=== PATIENT | male | born 1965 | race Caucasian/White ===

== ENCOUNTER → 2019-07-22 16:12 | Outpatient (CLI) | payer BC, SELFPAY ==
--- NOTE | 2019-07-22 16:20 | XR_ITS ---
PROCEDURE: XR KNEE LT 3V CLINICAL INDICATION: LT KNEE PAIN COMPARISON: KNEE3R KNEE-3 VIEWS-RT from 02/12/2016 FINDINGS: Bone density, joint spaces and alignment are normal. There is no acute fracture. There is a small posterior superior spur from the patella and small spur at the quadriceps tendon attachment to the patella. There is slight increased density in the suprapatellar bursa. IMPRESSION: No acute process. Some mild patellar spur Possible subtle small joint effusion. Dictated by: Jet Torre 07/22/2019 16:35 Electronically signed by Jet Torre in [place] 07/22/2019 16:35
== END ==
PROVIDERS: PCP Family Medicine; Visit Provider Family Medicine
DX: M25.562 Pain in left knee (principal); M25.462 Effusion, left knee
CPT/HCPCS: 73562

== ENCOUNTER → 2019-08-20 12:42 | Outpatient (CLI) | payer BC, SELFPAY ==
--- NOTE | 2019-08-20 12:46 | XR_ITS ---
PROCEDURE: XR KNEE LT 4V CLINICAL INDICATION: knee pain COMPARISON: KNEE3R KNEE-3 VIEWS-RT from 02/12/2016 XR KNEE LT 3V from 07/22/2019 FINDINGS: No fracture or dislocation. No lytic or blastic change. There is normal mineralization. There is mild medial compartment osteoarthritis. Enthesopathy of the superior aspect of the patella is noted. A small to moderate sized suprapatellar joint effusion is noted. Other findings:None. IMPRESSION: Osteoarthritis with joint effusion. Dictated by: Drake Solis 08/20/2019 15:54 Electronically signed by Drake Solis in [facility] 08/20/2019 15:54
== END ==
LOC: RAD 12:44
PROVIDERS: PCP Family Medicine; Visit Provider Orthopaedic Surgery
DX: M25.562 Pain in left knee (principal)
CPT/HCPCS: 73564

== ENCOUNTER → 2019-08-27 15:41 | Outpatient (CLI) | payer BC, SELFPAY ==
--- NOTE | 2019-08-27 15:41 | MR_ITS ---
PROCEDURE: MR KNEE LT WO CON CLINICAL INDICATION: left knee pain Left knee pain medially COMPARISON: XR KNEE LT 4V from 08/20/2019 TECHNIQUE: Routine multiplanar multi echo sequences are performed without gadolinium enhancement. FINDINGS: Cruciate ligaments are intact. The collateral ligaments, patellar tendon, and quadriceps tendon appears intact. Nonspecific increased T2 signal is present in the posterior horn of the medial meniscus and in the anterior horn of the lateral meniscus. No evidence of meniscal tear. There is some thinning of the posterior patellar cartilage superiorly and medially. There is a medium-sized knee joint effusion and there is a small amount of subcu soft tissue edema about the knee. IMPRESSION: 1. No evidence of internal derangement. 2. Medium-sized knee joint effusion. 3. 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
--- NOTE | 2019-08-27 15:51 | XR_ITS ---
PROCEDURE: XR ORBIT BILATERAL MIN 4V CLINICAL INDICATION: RULE OUT METAL FOREIGN BODY FOR MRI COMPARISON: No exams were available for comparison TECHNIQUE: AP views are obtained of the orbits with the patient looking up and down. FINDINGS: No radio opaque foreign bodies evident. IMPRESSION: No radio opaque orbital foreign body identified. Dictated by: Darron Bashir MD 08/27/2019 16:12 Electronically signed by Darron Bashir MD in [place] 08/27/2019 16:12
== END ==
PROVIDERS: PCP Family Medicine; Visit Provider Orthopaedic Surgery
DX: M25.562 Pain in left knee (principal); H05.53 Retained (old) foreign body following penetrating wound of bilateral orbits
CPT/HCPCS: 70200; 73721

== ENCOUNTER → 2020-08-16 19:17 | Outpatient (CLI) | payer BC, SELFPAY ==
[2020-08-16 19:50] LABS: Basophils # 0.1 K/mm3 (0-0.2); Eosinophils # 0.2 K/mm3 (0.0-0.4); Monocytes # 0.6 K/mm3 (0.1-1.0); Red Cell Distribution Width 14.6 % (11.5-17.5)
[2020-08-16 19:55] LABS: Basophils % 1.3 % (0.1-2.0); Eosinophils % 2.1 % (0.1-12.0); Hematocrit 51.7 % (42.0-52.0); Lymphocytes # 1.8 K/mm3 (0.7-4.5); Lymphocytes % 23.7 % (10-50); Mean Corpuscular HGB Conc 34.7 g/dL (31.8-35.4); Mean Corpuscular Hemoglobin 30.1 pg (27.0-31.2); Mean Corpuscular Volume 86.7 fl (80-94); Mean Platelet Volume 8.6 fl (7.4-10.4); Monocytes % 8.2 % (1.7-9.3); Neutrophils # 4.9 K/mm3 (1.8-7.8); Neutrophils % 64.6 % (37.0-80.0); Platelet Count 221 K/mm3 (142-424); Red Blood Count 5.96 M/mm3 (4.60-6.20); White Blood Count 7.5 K/mm3 (4.8-10.8)
[2020-08-16 20:01] LABS: Hemoglobin 17.9 g/dL (14.1-18.0)
[2020-08-16 20:05] LABS: Alanine Aminotransferase 57 U/L (12-78); Albumin Level 4.5 g/dl (3.5-5.0); Albumin/Globulin Ratio 1.5 (1.1-1.8); Alkaline Phosphatase 116 U/L (38-126); Anion Gap 15.5 mEq/L (5-15); Aspartate Amino Transferase 40 U/L (17-59); Bilirubin,Total 0.7 mg/dl (0.2-1.3); Blood Urea Nitrogen 21 mg/dl (9-20); Calcium 9.9 mg/dl (8.4-10.2); Carbon Dioxide 24 mmol/L (22.0-30.0); Chloride 97 mmol/L (98-107); Chol/HDL Ratio 7.4 (1-3.5); Cholesterol 208 mg/dl (140-200); Estimated Glomerular Filt Rate 88 ml/min (>60); GFR (African American) 106 ML/MIN (>60); Globulin 3.1 g/dL (1.3-3.2); Glucose 242 mg/dl (74-100); HDL Cholesterol 28 mg/dl (40-60); Potassium 4.5 mmoL/L (3.5-5.1); Sodium 132 mmol/L (136-145); Total Protein,Serum 7.6 g/dl (6.3-8.2)
[2020-08-16 20:13] LABS: Triglycerides 574 mg/dl (30-150)
[2020-08-16 20:16] LABS: Direct LDL Cholesterol 80.27 mg/dL (100-129)
[2020-08-16 20:20] LABS: 25-OH Vitamin D, Total 15.8 ng/mL (30-100)
[2020-08-16 20:35] LABS: Thyroid Stimulating Hormone 2.46 uIU/mL (0.465-4.68)
[2020-08-18 11:34] LABS: PSA, Free 0.21 ng/mL; Prostate Specific Ag 0.5 ng/mL (0.0-4.0)
[2020-08-18 17:47] LABS: C-Peptide 6.1 ng/mL (1.1-4.4)
== END ==
PROVIDERS: Visit Provider Nurse Practitioner Family
DX: E11.9 Type 2 diabetes mellitus without complications (principal); E78.5 Hyperlipidemia, unspecified; I10 Essential (primary) hypertension; E55.9 Vitamin D deficiency, unspecified; Z12.5 Encounter for screening for malignant neoplasm of prostate; Z72.0 Tobacco use
CPT/HCPCS: 80053; 80061; 82306; 83036; 84153; 84154; 84436; 84443; 84681; 85025

== ENCOUNTER → 2020-11-21 13:36 | Outpatient (CLI) | payer BC, SELFPAY ==
[2020-11-21 13:49] LABS: Chloride 100 mmol/L (98-107); Potassium 4.5 mmoL/L (3.5-5.1); Sodium 136 mmol/L (136-145)
[2020-11-21 13:51] LABS: Alanine Aminotransferase 40 U/L (12-78); Aspartate Amino Transferase 35 U/L (17-59); Blood Urea Nitrogen 20 mg/dl (9-20); Estimated Glomerular Filt Rate 69 ml/min (>60); GFR (African American) 84 ML/MIN (>60)
[2020-11-21 13:52] LABS: Albumin Level 4.5 g/dl (3.5-5.0); Albumin/Globulin Ratio 1.6 (1.1-1.8); Alkaline Phosphatase 87 U/L (38-126); Anion Gap 14.5 mEq/L (5-15); Bilirubin,Total 0.7 mg/dl (0.2-1.3); Carbon Dioxide 26 mmol/L (22.0-30.0); Chol/HDL Ratio 5.8 (1-3.5); Cholesterol 167 mg/dl (140-200); Globulin 2.8 g/dL (1.3-3.2); Glucose 128 mg/dl (74-100); HDL Cholesterol 29 mg/dl (40-60); Total Protein,Serum 7.3 g/dl (6.3-8.2); Triglycerides 213 mg/dl (30-150); VLDL Cholesterol 43 mg/dL (0-40)
[2020-11-21 13:55] LABS: Creatinine,Urine Random 58 mg/dL (Not Estab.)
[2020-11-21 14:02] LABS: Microalbumin < 6.000 mg/L (0-16.7)
[2020-11-21 14:03] LABS: Direct LDL Cholesterol 102.27 mg/dL (100-129)
[2020-11-21 14:11] LABS: T4 (Thyroxine) 6.6 ug/dl (5.53-11.0)
[2020-11-21 14:23] LABS: Thyroid Stimulating Hormone 1.91 uIU/mL (0.465-4.68)
[2020-11-21 14:29] LABS: Basophils # 0.1 K/mm3 (0-0.2); Basophils % 0.7 % (0.1-2.0); Eosinophils # 0.2 K/mm3 (0.0-0.4); Eosinophils % 1.9 % (0.1-12.0); Hematocrit 46.8 % (42.0-52.0); Lymphocytes # 1.5 K/mm3 (0.7-4.5); Lymphocytes % 17.6 % (10-50); Mean Corpuscular HGB Conc 34.1 g/dL (31.8-35.4); Mean Corpuscular Hemoglobin 29.8 pg (27.0-31.2); Mean Corpuscular Volume 87.5 fl (80-94); Mean Platelet Volume 8.3 fl (7.4-10.4); Monocytes # 0.5 K/mm3 (0.1-1.0); Monocytes % 6.6 % (1.7-9.3); Neutrophils # 6.1 K/mm3 (1.8-7.8); Neutrophils % 73.3 % (37.0-80.0); Platelet Count 205 K/mm3 (142-424); Red Blood Count 5.35 M/mm3 (4.60-6.20); Red Cell Distribution Width 14.2 % (11.5-17.5); White Blood Count 8.3 K/mm3 (4.8-10.8)
[2020-11-21 15:04] LABS: Hemoglobin A1C 6.7 % (4.0-6.0)
== END ==
PROVIDERS: Visit Provider Nurse Practitioner Family
DX: E11.9 Type 2 diabetes mellitus without complications (principal); E78.5 Hyperlipidemia, unspecified; I10 Essential (primary) hypertension; Z79.84 Long term (current) use of oral hypoglycemic drugs; Z79.899 Other long term (current) drug therapy
CPT/HCPCS: 80053; 80061; 82043; 82570; 83036; 84436; 84443; 85025

== ENCOUNTER → 2021-05-02 17:45 | Outpatient (CLI) | payer BC, SELFPAY ==
[2021-05-02 19:06] LABS: Alanine Aminotransferase 34 U/L (12-78); Albumin Level 4.3 g/dl (3.5-5.0); Albumin/Globulin Ratio 1.5 (1.1-1.8); Alkaline Phosphatase 80 U/L (38-126); Anion Gap 12.6 mEq/L (5-15); Aspartate Amino Transferase 30 U/L (17-59); Basophils # 0.1 K/mm3 (0-0.2); Bilirubin,Total 0.6 mg/dl (0.2-1.3); Blood Urea Nitrogen 18 mg/dl (9-20); Calcium 9.5 mg/dl (8.4-10.2); Carbon Dioxide 26 mmol/L (22.0-30.0); Chloride 102 mmol/L (98-107); Chol/HDL Ratio 5.5 (1-3.5); Cholesterol 160 mg/dl (140-200); Eosinophils # 0.2 K/mm3 (0.0-0.4); Eosinophils % 2.9 % (0.1-12.0); Estimated Glomerular Filt Rate 88 ml/min (>60); GFR (African American) 106 ML/MIN (>60); Globulin 2.8 g/dL (1.3-3.2); Glucose 96 mg/dl (74-100); HDL Cholesterol 29 mg/dl (40-60); Hematocrit 48.5 % (42.0-52.0); Hemoglobin 16.6 g/dL (14.1-18.0); Lymphocytes # 1.7 K/mm3 (0.7-4.5); Lymphocytes % 22.5 % (10-50); Mean Corpuscular HGB Conc 34.1 g/dL (31.8-35.4); Mean Corpuscular Hemoglobin 30.2 pg (27.0-31.2); Mean Corpuscular Volume 88.6 fl (80-94); Mean Platelet Volume 8.7 fl (7.4-10.4); Monocytes # 0.6 K/mm3 (0.1-1.0); Monocytes % 7.3 % (1.7-9.3); Neutrophils # 5.1 K/mm3 (1.8-7.8); Neutrophils % 66.3 % (37.0-80.0); Platelet Count 210 K/mm3 (142-424); Potassium 4.6 mmoL/L (3.5-5.1); Red Blood Count 5.47 M/mm3 (4.60-6.20); Red Cell Distribution Width 14.9 % (11.5-17.5); Sodium 136 mmol/L (136-145); Total Protein,Serum 7.1 g/dl (6.3-8.2); Triglycerides 147 mg/dl (30-150); VLDL Cholesterol 29 mg/dL (0-40); White Blood Count 7.6 K/mm3 (4.8-10.8)
[2021-05-02 19:18] LABS: Direct LDL Cholesterol 95.18 mg/dL (100-129)
[2021-05-02 19:24] LABS: Free T4 (Free Thyroxine) 1.03 ng/dl (0.78-2.19)
[2021-05-02 19:40] LABS: Thyroid Stimulating Hormone 1.91 uIU/mL (0.465-4.68)
[2021-05-02 19:45] LABS: Creatinine,Urine Random 41 mg/dL (Not Estab.); Microalbumin < 6.000 mg/L (0-16.7)
[2021-05-02 20:28] LABS: Hemoglobin A1C 5.7 % (4.0-6.0)
== END ==
PROVIDERS: Visit Provider Nurse Practitioner Family
DX: E11.9 Type 2 diabetes mellitus without complications (principal); Z79.84 Long term (current) use of oral hypoglycemic drugs; Z79.899 Other long term (current) drug therapy
CPT/HCPCS: 80053; 80061; 82043; 82570; 83036; 84439; 84443; 85025

== ENCOUNTER → 2021-11-05 14:18 | Outpatient (CLI) | payer BC, SELFPAY ==
[2021-11-05 18:19] LABS: Basophils # 0.1 K/mm3 (0-0.2); Basophils % 0.9 % (0.1-2.0); Eosinophils # 0.2 K/mm3 (0.0-0.4); Eosinophils % 2.4 % (0.1-12.0); Hematocrit 46.4 % (42.0-52.0); Hemoglobin 15.9 g/dL (14.1-18.0); Lymphocytes # 1.6 K/mm3 (0.7-4.5); Lymphocytes % 21.9 % (10-50); Mean Corpuscular HGB Conc 34.2 g/dL (31.8-35.4); Mean Corpuscular Hemoglobin 30.7 pg (27.0-31.2); Mean Corpuscular Volume 89.8 fl (80-94); Mean Platelet Volume 8.6 fl (7.4-10.4); Monocytes # 0.5 K/mm3 (0.1-1.0); Monocytes % 6.4 % (1.7-9.3); Neutrophils # 4.9 K/mm3 (1.8-7.8); Neutrophils % 68.4 % (37.0-80.0); Platelet Count 218 K/mm3 (142-424); Red Blood Count 5.17 M/mm3 (4.60-6.20); Red Cell Distribution Width 14.5 % (11.5-17.5); White Blood Count 7.1 K/mm3 (4.8-10.8)
[2021-11-05 18:38] LABS: Hemoglobin A1C 5.9 % (4.0-6.0)
[2021-11-05 18:50] LABS: Alanine Aminotransferase 45 U/L (12-78); Albumin Level 4.2 g/dl (3.5-5.0); Albumin/Globulin Ratio 1.7 (1.1-1.8); Alkaline Phosphatase 85 U/L (38-126); Aspartate Amino Transferase 34 U/L (17-59); Bilirubin,Total 0.6 mg/dl (0.2-1.3); Blood Urea Nitrogen 26 mg/dl (9-20); Calcium 9.3 mg/dl (8.4-10.2); Carbon Dioxide 23 mmol/L (22.0-30.0); Chloride 102 mmol/L (98-107); Chol/HDL Ratio 7.5 (1-3.5); Cholesterol 164 mg/dl (140-200); Estimated Glomerular Filt Rate 87 ml/min (>60); GFR (African American) 106 ML/MIN (>60); Globulin 2.5 g/dL (1.3-3.2); Glucose 177 mg/dl (74-100); HDL Cholesterol 22 mg/dl (40-60); Sodium 135 mmol/L (136-145); Total Protein,Serum 6.7 g/dl (6.3-8.2); Triglycerides 353 mg/dl (30-150); VLDL Cholesterol 71 mg/dL (0-40)
[2021-11-05 19:02] LABS: Direct LDL Cholesterol 87.92 mg/dL (100-129)
[2021-11-05 19:08] LABS: 25-OH Vitamin D, Total 67.1 ng/mL (30-100); T4 (Thyroxine) 6.1 ug/dl (5.53-11.0)
[2021-11-05 19:21] LABS: Thyroid Stimulating Hormone 1.72 uIU/mL (0.465-4.68)
[2021-11-07 11:26] LABS: C-Peptide 10.5 ng/mL (1.1-4.4)
== END ==
PROVIDERS: PCP Nurse Practitioner Family; Visit Provider Nurse Practitioner Family
DX: E11.9 Type 2 diabetes mellitus without complications (principal); I10 Essential (primary) hypertension; E78.5 Hyperlipidemia, unspecified; E66.9 Obesity, unspecified; Z68.34 Body mass index [BMI] 34.0-34.9, adult; Z79.84 Long term (current) use of oral hypoglycemic drugs
CPT/HCPCS: 80053; 80061; 82306; 83036; 84436; 84443; 84681; 85025

== ENCOUNTER → 2021-12-25 12:31 | Outpatient (CLI) | payer BC, SELFPAY ==
--- NOTE | 2021-12-25 12:35 | XR_ITS ---
FINAL REPORT CLINICAL HISTORY: L Knee pain FINDINGS: Four views of the left knee were obtained. The images are incorrectly labeled as a right knee. There is no acute fracture or dislocation. The joint spaces demonstrate mild degenerative change. There is a small joint effusion. IMPRESSION: Small joint effusion with mild degenerative change. Reviewed, Interpreted and Dictated by Raimundo Shaw III, MD Transcribed by Jose Antonio Hernandez Authenticated by Raimundo Shaw III, MD on 12/25/2021 01:37:05 PM [facility]
== END ==
LOC: RAD 12:32
PROVIDERS: PCP Nurse Practitioner Family; Visit Provider Nurse Practitioner Family
DX: M25.562 Pain in left knee (principal)
CPT/HCPCS: 73564

== ENCOUNTER → 2022-08-14 14:15 | Outpatient (CLI) | payer BC, SELFPAY ==
[2022-08-14 19:26] LABS: Basophils # 0.1 K/mm3 (0-0.2); Eosinophils # 0.2 K/mm3 (0.0-0.4); Eosinophils % 2.2 % (0.1-12.0); Hematocrit 48.8 % (42.0-52.0); Hemoglobin 17.2 g/dL (14.1-18.0); Lymphocytes # 1.7 K/mm3 (0.7-4.5); Lymphocytes % 22.1 % (10-50); Mean Corpuscular HGB Conc 35.2 g/dL (31.8-35.4); Mean Corpuscular Hemoglobin 30.7 pg (27.0-31.2); Mean Corpuscular Volume 87.2 fl (80-94); Mean Platelet Volume 9.2 fl (7.4-10.4); Monocytes # 0.7 K/mm3 (0.1-1.0); Monocytes % 8.6 % (1.7-9.3); Neutrophils # 5.1 K/mm3 (1.8-7.8); Platelet Count 270 K/mm3 (142-424); Red Cell Distribution Width 14.7 % (11.5-17.5); White Blood Count 7.7 K/mm3 (4.8-10.8)
[2022-08-14 19:28] LABS: Alanine Aminotransferase 72 U/L (12-78); Albumin Level 4.8 g/dl (3.5-5.0); Albumin/Globulin Ratio 1.8 (1.1-1.8); Alkaline Phosphatase 97 U/L (38-126); Anion Gap 14.6 mEq/L (5-15); Aspartate Amino Transferase 49 U/L (17-59); Bilirubin,Total 0.6 mg/dl (0.2-1.3); Blood Urea Nitrogen 21 mg/dl (9-20); Calcium 9.5 mg/dl (8.4-10.2); Carbon Dioxide 24 mmol/L (22.0-30.0); Chloride 100 mmol/L (98-107); Chol/HDL Ratio 8.8 (1-3.5); Cholesterol 194 mg/dl (140-200); Estimated Glomerular Filt Rate 87 ml/min (>60); GFR (African American) 106 ML/MIN (>60); Globulin 2.6 g/dL (1.3-3.2); Glucose 131 mg/dl (74-100); HDL Cholesterol 22 mg/dl (40-60); Potassium 4.6 mmoL/L (3.5-5.1); Sodium 134 mmol/L (136-145); Total Protein,Serum 7.4 g/dl (6.3-8.2)
[2022-08-14 19:36] LABS: Creatinine,Urine Random 81 mg/dL (Not Estab.)
[2022-08-14 19:38] LABS: Microalbumin < 6.000 mg/L (0-16.7)
[2022-08-14 19:39] LABS: Direct LDL Cholesterol 92.28 mg/dL (100-129)
[2022-08-14 19:41] LABS: Triglycerides 571 mg/dl (30-150)
[2022-08-14 19:48] LABS: 25-OH Vitamin D, Total 31.1 ng/mL (30-100)
[2022-08-14 20:01] LABS: Prostate Specific Ag Screen 0.6 ng/ml (0.0-4.0); Thyroid Stimulating Hormone 2.26 uIU/mL (0.465-4.68)
[2022-08-14 20:29] LABS: Hemoglobin A1C 6.5 % (4.0-6.0)
== END ==
PROVIDERS: PCP Physician Assistant; Visit Provider Physician Assistant
DX: E11.9 Type 2 diabetes mellitus without complications (principal); E66.3 Overweight; Z68.34 Body mass index [BMI] 34.0-34.9, adult; Z79.84 Long term (current) use of oral hypoglycemic drugs; Z79.899 Other long term (current) drug therapy
CPT/HCPCS: 80053; 80061; 82043; 82306; 82570; 83036; 84443; 85025; G0103

== ENCOUNTER 2022-10-16 06:46 | Inpatient (IN) | payer BC, SELFPAY ==
[2022-10-16] VITALS (45 sets, daily range): BP systolic 90–143; BP diastolic 43–93; PULSE 44–61; RESP 12–20; TEMP 36.1–37.2; O2SAT 93–100; BMI 34.9; BMI 36.3
--- NOTE | 2022-10-16 06:42 | ECG_ITS ---
APPROVED REPORT Exam: Resting ECG HR:63 bpm ECG Measurements Heart Rate 63 AXES AL 167 P 54 QRSd 105 QRS -38 QT 401 T 32 QTc 408 Conclusion SINUS RHYTHM WITH FREQUENT VENTRICULAR PREMATURE COMPLEXES LEFT AXIS DEVIATION [QRS AXIS < -30] ABNORMAL ECG UNCONFIRMED REPORT Electronically signed by : Surinder Tran MD 10/18/2022 16:41:57
--- NOTE | 2022-10-16 06:54 | XR_ITS ---
FINAL REPORT CLINICAL HISTORY: cp FINDINGS: TWO-VIEW CHEST The heart size is normal. The mediastinum is normal. There are mild chronic changes at the bases. The lungs are otherwise clear. There is no pneumothorax. IMPRESSION: No acute cardiopulmonary process. Reviewed, Interpreted and Dictated by Kei Giang MD Transcribed by Graciela Velasquez Authenticated and [facility]
[2022-10-16 07:04] LABS: White Blood Count 6.5 K/mm3 (4.8-10.8)
[2022-10-16 07:05] LABS: Basophils # 0.1 K/mm3 (0-0.2); Basophils % 1.4 % (0.1-2.0); Eosinophils # 0.1 K/mm3 (0.0-0.4); Eosinophils % 1.5 % (0.1-12.0); Hematocrit 51.3 % (42.0-52.0); Hemoglobin 17.5 g/dL (14.1-18.0); Lymphocytes % 15.3 % (10-50); Mean Corpuscular Volume 88.3 fl (80-94); Mean Platelet Volume 7.7 fl (7.4-10.4); Monocytes # 0.5 K/mm3 (0.1-1.0); Monocytes % 7.6 % (1.7-9.3); Neutrophils # 4.8 K/mm3 (1.8-7.8); Neutrophils % 74.2 % (37.0-80.0); Platelet Count 230 K/mm3 (142-424); Red Blood Count 5.81 M/mm3 (4.60-6.20); Red Cell Distribution Width 14.5 % (11.5-17.5)
[2022-10-16 07:09] LABS: Alanine Aminotransferase 69 U/L (12-78); Albumin Level 4.6 g/dl (3.5-5.0); Albumin/Globulin Ratio 1.5 (1.1-1.8); Alkaline Phosphatase 81 U/L (38-126); Anion Gap 12.2 mEq/L (5-15); Aspartate Amino Transferase 57 U/L (17-59); Bilirubin,Total 0.7 mg/dl (0.2-1.3); Blood Urea Nitrogen 21 mg/dl (9-20); Calcium 9.4 mg/dl (8.4-10.2); Carbon Dioxide 27 mmol/L (22.0-30.0); Chloride 100 mmol/L (98-107); Creatinine Clearance Estimated 139 mL/min (50-200); Estimated Glomerular Filt Rate 77 ml/min (>60); GFR (African American) 93 ML/MIN (>60); Glucose 192 mg/dl (74-100); Potassium 4.2 mmoL/L (3.5-5.1); Sodium 135 mmol/L (136-145); Total Protein,Serum 7.6 g/dl (6.3-8.2)
[2022-10-16 07:21] LABS: NT Pro Brain Natriuretic Pep. 271 pg/mL (0-125)
[2022-10-16 07:25] LABS: Procalcitonin 0.098 ng/mL (0.0-2.0)
--- NOTE | 2022-10-16 07:27 | HMH.EDCP ---
Discharge Plan Disposition Patient Disposition: Admitted As Inpatient Chief Complaint: Chest Pain Prescriptions Prescriptions: No Action metformin 500 mg tablet 500 mg PO BID Label Comments: TAKE ONE TABLET BY MOUTH TWICE A DAY (DME) blood-glucose meter Misc See Rx Instructions MISCELLANEOUS Rx Instructions: test BID (DME) Contour Test Strips Strip See Rx Instructions MISCELLANEOUS Rx Instructions: Test BID aspirin 81 mg tablet,delayed release (DR/EC) 81 mg PO DAILY Rx Instructions: TAKE 1 TABLET BY MOUTH ONCE DAILY lisinopril 10 mg tablet 10 mg PO DAILY Rx Instructions: TAKE ONE TABLET BY MOUTH EVERY DAY icosapent ethyl [Vascepa] 1 gram capsule 1 g PO DAILY Rx Instructions: TAKE 2 TABLETS BY MOUTH TWICE A DAY FOR CHOLESTROL (DME) lancets [Color Lancets] 21 gauge misc See Rx Instructions MISCELLANEOUS Rx Instructions: As directed Referrals Follow up/Referrals: Provider,Referral, MD [Referring] - See instructions Clinical Impressions Clinical Impression: Angina pectoris, unstable, Non-ST elevated myocardial infarction (non-STEMI), Type 2 diabetes mellitus, Obesity Discharge ED Provider: Ramy (ED)Neftaly Chest Pain HPI General Chief Complaint: Chest Pain Stated Complaint: chest pain Time Seen by Provider: 10/16/22 07:28 Mode of Arrival: Ambulatory Source of Information: Patient, Spouse and Medical Record Limitations: No Limitations Description of Symptoms (Recalled from ER Triage Doc. by RN): [facility] cp for prior 2 weeks that is intermittent. States that he woke up this am and the pain was in the center of his chest with radiation down his left arm. States that nothing makes it better. Denies n/v. History of Present Illness HPI narrative: pt with episodes of chest pain over the last 2 weeks - brief- self-limiting but this am with chest pain some pressure component and started since 0300 and has not left - no known ht dis but has diabetes MD complaint: chest pain indicative of cardiac Onset (ago): hour(s) Duration: constant Activity at onset: during rest Pain location: substernal Severity: moderate Quality: heaviness Pain radiation: LUE Risk Factors for CAD: Family Hx of CAD and Diabetes Treatments prior to or on arrival for Cardiac Chest Pain: none RASHAAD Score for Non-Stemi Age of Patient: 50-59 years old Heart Rate: 50-69 bpm Systolic Blood Pressure: 100-119 mmHg Serum Creatinine: 0.80-1.19 mg/dl CHF Killip Class: I-No CHF Other Risk Factors: Elevated Cardiac Enzymes or Biomarkers Non-Stemi Risk Score: 108 Risk Stratification: 1-108 = Low Risk Related Data Home Medications Medication Instructions Recorded Confirmed aspirin 81 mg tablet,delayed 81 mg PO DAILY heart health 10/16/22 10/16/22 release blood sugar diagnostic (Contour 10/16/22 10/16/22 Test Strips) blood-glucose meter 10/16/22 10/16/22 icosapent ethyl 1 gram capsule 1 g PO DAILY High cholesterol 10/16/22 10/16/22 (Vascepa) lancets 21 gauge (Color Lancets) 10/16/22 10/16/22 lisinopril 10 mg tablet 10 mg PO DAILY High blood pressure 10/16/22 10/16/22 metformin 500 mg tablet 500 mg PO BID Diabetes 10/16/22 10/16/22 Allergies Allergy/AdvReac Type Severity Reaction Status Date / Time Penicillins [PENICILLINS] Allergy Unknown Verified 08/14/22 14:08 [facility] Disclaimer: The information contained in this section may have been updated after the patient was seen, as this information can be updated by other users. Medical History Diabetes Hyperlipidemia Hypertension Type 2 diabetes mellitus Social History Smoking Status: Never smoker alcohol intake: former substance use type: denies use current occupational status: employed Travel in the last 8 weeks: None household members: s
--- NOTE | 2022-10-16 07:27 | PC.NURSE ---
Dr coronado speaking to Dr Orta
--- NOTE | 2022-10-16 07:28 | ECG_ITS ---
APPROVED REPORT Exam: Resting ECG HR:60 bpm ECG Measurements Heart Rate 60 AXES GA 122 P 82 QRSd 101 QRS -49 QT 403 T 11 QTc 403 Conclusion SINUS RHYTHM WITH OCCASIONAL VENTRICULAR PREMATURE COMPLEXES LEFT ANTERIOR FASCICULAR BLOCK [QRS AXIS <= -45, QR IN I, RS IN II] ABNORMAL ECG UNCONFIRMED REPORT Electronically signed by : Surinder Tran MD 10/18/2022 16:39:52
[2022-10-16 07:31] LABS: Erythrocyte Sedimentation Rate 11 mm/hr (0-20)
[2022-10-16 07:37] LABS: Troponin I 0.22 ng/ml (0.00-0.034)
--- NOTE | 2022-10-16 07:37 | PC.NURSE ---
called lab for troponin rosalbaiwsed dr Mccann it is 0.222
--- NOTE | 2022-10-16 07:38 | PC.NURSE ---
verbal order for nitro drip per MD
--- NOTE | 2022-10-16 07:39 | PC.NURSE ---
Dr Mccann talking to Dr Orta
[2022-10-16 07:41] LABS: C-Reactive Protein 0.9 mg/L (0-4)
--- NOTE | 2022-10-16 07:42 | PC.NURSE ---
Dr Mccann spoke to Dr Gutiérrez
--- NOTE | 2022-10-16 07:44 | PC.NURSE ---
called case management for admission
--- NOTE | 2022-10-16 08:02 | PC.NURSE ---
pt shaved for cath, placed in a gown and pads in place. pt is resting comfortable rating his pain 1/10. vss at this time
[2022-10-16 08:04] LABS: Cholesterol 206 mg/dl (140-200); HDL Cholesterol 23 mg/dl (40-60); Triglycerides 353 mg/dl (30-150); VLDL Cholesterol 71 mg/dL (0-40)
--- NOTE | 2022-10-16 08:06 | PC.NURSE ---
cath consent signed at this time
[2022-10-16 08:26] LABS: Direct LDL Cholesterol 120.39 mg/dL (100-129)
[2022-10-16 08:52] LABS: Hemoglobin A1C 6.3 % (4.0-6.0)
--- NOTE | 2022-10-16 09:18 | PC.NURSE ---
Sapna Rachel in with
--- NOTE | 2022-10-16 09:21 | PC.NURSE ---
pt to laboratory inspector at this time
--- NOTE | 2022-10-16 09:24 | IR_ITS ---
APPROVED REPORT Patient Location: [facility] Facilitator: GEOVANI Rodgers RT (R) PROCEDURES Left heart catheterization Left ventriculogram Selective coronary angiogram Attempted angioplasty of the nondominant circumflex artery INDICATION Non-ST elevation myocardial infarction, Coronary disease with occluded circumflex artery Informed consent was obtained prior to the procedure. COMPLICATIONS None Estimated Blood Loss: Less than 10 ML TECHNIQUE One percent lidocaine used to anesthetize the right anterior aspect of the wrist. The right radial artery was accessed via the Seldinger technique. A 6 Nepali sheath was placed in the right radial artery. 150 mg magnesium sulfate, 800 mcg of nitroglycerin, 1mg Lidocaine and 5000 U Heparin were given through the arterial sheath. The papa catheter was also used to perform left heart catheterization, left ventriculogram and selective coronary angiogram. At the end the diagnostic angiogram therapeutic heparin was administered giving a therapeutic ACT and the guide catheter was placed in the left main artery followed by a Choice PT extra-support wire being placed into the circumflex artery which was occluded. Given patient was having ongoing chest pain with a nondiagnostic EKG this was felt to be the culprit vessel. The wire would not easily pass therefore 2 mm x 12 mm balloon was then advanced and placed adjacent to the vessel. Despite having the balloon for support the Choice PT wire would not advance demonstrating the vessel was calcified. Because of this the apparatus was removed the sheath was removed good hemostasis was achieved using TR banding patient was transferred the postop putting in stable condition ANGIOGRAPHIC RESULTS The left main artery Has an ostial 40% stenosis The left anterior descending artery Has proximal hazy 90% stenosis The circumflex artery Nondominant proximally occluded with scant left to left and right to left collateral The right coronary artery Dominant and has an ostial 40% stenosis with a mid vessel 60% stenosis and a distal concentric 80% stenosis immediately proximal to the bifurcation of the PDA and the posterior lateral branch The HSU ventriculogram reveals Not performed The left ventricular end-diastolic pressure Not measured IMPRESSION Severe to critical three-vessel coronary disease as described above Attempted angioplasty of a chronically occluded circumflex artery in which only minimal attempted crossing the vessel was undertaken PLAN 1. Discontinue Brilinta 2. Continue high intensity statin and aspirin therapy 3. Transfer to [facility] for coronary bypass surgery 4. Started on heparin drip as well as nitroglycerin drip Electronically signed by : Ajith Orta MD 10/16/2022 13:08:44
--- NOTE | 2022-10-16 09:40 | CA_ITS ---
APPROVED REPORT EXAM: Comprehensive 2D, Doppler, and color-flow Echocardiogram Sprayer Hand: Sara Kat CRT Ht: 6 ft 1 in Wt: 265lbs BSA: 2.42 BP: 119/65 mmHg Indications: Chest Pain, Non STEMI, Diabetes, Hyperlipidemia, Hypertension/HDD, Pt had cath today being transferred to for CABG 2D Dimensions Aortic Root 2.23 cm M-Mode Dimensions RVDd 3.99 cm (0.9-2.6) LA Diam 4.00 cm (1.9-4.0) LVDd 4.31 cm (3.5-5.7) Ao Diam 4.66 cm (2.0-3.7) LVDs 3.56 cm (3.5-5.7) IVSd 1.99 cm (0.6-1.1) PWd 0.96 cm (0.6-1.1) EF (Teich) 36.50% FS 17.40% EDV (Teich) 83.50 mL TAPSE 1.98 (<1.7) ESV (Teich) 53.00 mL LV Diastology E Decel Time 110.00 (160-240 msec) E/A Ratio 1.35 MED E' 9.90 (< 7 cm/sec) MED A' 12.10 cm/s E'/MED E' Ratio 8.56 (>14) LAT E' 12.50 (<10 cm/sec) LAT A' 11.10 cm/s E/LAT E' Ratio 6.78 (>14) Aortic Valve AO Peak GR. 7.10 mmHg Mitral Valve MV A Velocity 63.00 (40-130 cm/s) E/A Ratio 1.35 MV Decel. Time 110.00 (160-240 ms) Pulmonary Valve PV Peak Velocity 164.00 (50-150 cm/s) Tricuspid Valve TR P. Velocity 248.00 cm/s RAP Estimate 10.00 mmHg RVSP 34.60 mmHg Left Ventricle Technically difficult study because of the patient factors and poor acoustic windows. Left atrium is mildly enlarged, left ventricle is normal size mild concentric left ventricular hypertrophy, estimated ejection fraction approximately 45%, there is moderate hypokinesis involving mid to distal septum and anterior apical wall, inferior wall is also moderately hypokinetic. Diastolic parameters are inconclusive. Right Ventricle Right atrium and right ventricular normal size and Aortic Valve contractility. Aortic valve is minimally thickened and calcified without aortic stenosis or aortic insufficiency. Mitral Valve Mitral valve is grossly normal, there is trace mitral regurgitation. Tricuspid Valve Tricuspid valve grossly normal, there is trace tricuspid regurgitation, tricuspid regurgitation jet velocity is inadequate for calculation of the right ventricular systolic pressure. Pulmonic Valve Pulmonic valve is poorly visualized. Great Vessels Aortic root is normal size. Inferior vena cava is poorly visualized. Pericardium No significant pericardial effusion noted. Conclusion 1. Technically difficult study because of the patient factors and poor acoustic windows. 2. Normal left ventricular size, estimated ejection fraction 45% with multiple segmental wall motion abnormality described above, diastolic parameters are inconclusive. 3. Trace mitral and tricuspid regurgitation. 4. No significant pericardial effusion noted. 5. Inferior vena cava is poorly visualized. Electronically signed by : Jung Mccoy MD 10/17/2022 05:39:59
--- NOTE | 2022-10-16 09:41 | EXP.CARD.CON ---
History of Present Illness History of Present Illness Consult date: 10/16/22 Requesting physician: Neftaly Mccann Consult reason: chest pain Chief complaint: chest pain History of present illness: This is a 57-year-old white gentleman who presented to the emergency department with complaints of chest pain. The patient reports that his chest pain started approximately 2 weeks ago and was occurring intermittently. The patient states that this is a pressure, aching sensation in the substernal aspect of his chest and radiates down both arms but the left is worse than the right. He states that this causes numbness and tingling in the arms. The patient reports associated diaphoresis. He denies any shortness of breath or nausea or vomiting. The patient reports that the chest pain woke him up around 3:30 AM this morning and has not resolved since that time. He states that this was a 9/10 pain in intensity. He states that he drove to the emergency department because of his severe chest pain. He does report improvement in the pain after being started on a nitroglycerin drip but it is still present. The patient's initial EKG was sinus rhythm and then repeat EKG showed that he was in a junctional rhythm. While I am talking to the patient he does bradycardia down to around 34 to 38 bpm. He has no worsening chest pain at that time and denies any feelings of syncope. He denies any shortness of breath or edema. He denies any fever, chills, nausea, vomiting, diarrhea, PND or orthopnea. The patient has known hypertension, hyperlipidemia and diabetes. The patient does have an elevated troponin consistent with a non-ST elevation myocardial infarction. The patient does report a family history of coronary artery disease in his brother. [facility] Disclaimer: The information contained in this section may have been updated after the patient was seen, as this information can be updated by other users. Medical History (Updated 10/16/22 @ 09:55 by Sapna Rachel APRN) Angina pectoris, unstable Diabetes Former tobacco use Hyperlipidemia Hypertension Junctional rhythm Non-ST elevated myocardial infarction (non-STEMI) PVCs (premature ventricular contractions) Sinus bradycardia Type 2 diabetes mellitus Family History Brother Coronary artery disease Other Hyperlipidemia Hypertension Social History Smoking Status: Never smoker alcohol intake: former substance use type: denies use current occupational status: employed Travel in the last 8 weeks: None household members: spouse and family housing: house current occupational exposures/hazards: No caffeine: Yes Review of Systems Review of Systems Review of systems:: pertinent systems reviewed and negative unless documented below Constitutional Constitutional: Reports system reviewed and no additional complaints, except as documented Eyes Eyes: Reports system reviewed and no additional complaints, except as documented ENT Ears, Nose, Mouth, and Throat: Reports system reviewed and no additional complaints, except as documented *Cardiovascular Cardiovascular: Reports system reviewed and no additional complaints, except as documented, Reports chest pain, Reports chest pain at rest, Reports chest pain with activity, Reports diaphoresis and Reports radiating jaw, neck or arm pain *Respiratory Respiratory: Reports system reviewed and no additional complaints, except as documented *Gastrointestinal Gastrointestinal: Reports system reviewed and no additional complaints, except as documented *Genitourinary Genitourinary: Reports system reviewed and no additional complaints, except as documented *Musculoskeletal Musculoskeletal: Reports system reviewed and no additional complaints, except as documented Integumentary/Breasts Skin/Breast: Reports system reviewed and no additional complaints, except as
--- NOTE | 2022-10-16 11:28 | SUR.OPER ---
Do not titrate nitro drip per rasheeda leave at 5mcg
--- NOTE | 2022-10-16 11:32 | SUR.PHASEII ---
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
[2022-10-16 11:49] LABS: CATHL Activated Clotting Time 142 SEC (74-125)
--- NOTE | 2022-10-16 12:05 | PC.NURSE ---
arrived to floor by stretcher from laboratory scientist
--- NOTE | 2022-10-16 12:24 | EXP.HP ---
History of Present Illness *Admission Date: 10/16/22 *Reason for visit:: chest pain *History of present illness: Mr. Alvarez is a 57-year-old gentleman who presented to the ER with complaints of chest pain and pressure across his chest radiating into his arms. Reports it started a few weeks ago and has been intermittent. Pain is pressure-like, aching across his chest. Radiates down both arms, worse in the left. He has had some numbness and tingling in his arms. Occasional diaphoresis and dyspnea along with this pain. Denies any nausea, vomiting, increased belching. Reason for presenting today, he woke up this morning at approximately 3:30 in the morning with worsening chest pain, and has not resolved. Drove himself to the ER for evaluation. Pain was reportedly a 9 out of 10 in intensity. Started on nitroglycerin drip in the ER with some minor improvement. Initial troponin elevated at 0.22. Cardiology consulted and patient taken to the Transmission And Coordination Engineer. Medicine consulted for admission after left heart cath. After arriving to the floor, patient states he is feeling better but still having some mild chest pain. Currently on a heparin and a nitro drip. Currently in a bradycardic rhythm on telemetry.? He denies any shortness of breath or edema.? He denies any fever, chills, nausea, vomiting, diarrhea, PND or orthopnea.? The patient has known hypertension, hyperlipidemia and diabetes.? The patient does report a family history of coronary artery disease in his brother who has had a stent placed. [facility] Disclaimer: The information contained in this section may have been updated after the patient was seen, as this information can be updated by other users. Medical History (Updated 10/16/22 @ 15:54 by Alec Gutiérrez MD) Angina pectoris, unstable Appendicitis Diabetes Former tobacco use Hyperlipidemia Hypertension Junctional rhythm Non-ST elevated myocardial infarction (non-STEMI) PVCs (premature ventricular contractions) Sinus bradycardia Type 2 diabetes mellitus Surgical History (Updated 10/16/22 @ 14:56 by Mariaa Frost RN) History of appendectomy Hx of cholecystectomy Family History Brother Coronary artery disease Other Hyperlipidemia Hypertension Social History (Updated 10/16/22 @ 14:56 by Mariaa Frost RN) Smoking Status: Never smoker alcohol intake: former substance use type: denies use current occupational status: employed Travel in the last 8 weeks: None household members: spouse and family housing: house current occupational exposures/hazards: No caffeine: Yes Review of Systems Review of Systems Review of systems (narrative): 14 point review of systems performed, pertinent positives and negatives as per HPI *Neurologic Neurologic: Reports system reviewed and no additional complaints, except as documented Meds Home Medications and Allergies Home Medications Medication Instructions Recorded Confirmed Type aspirin 81 mg tablet,delayed 81 mg PO DAILY heart health 10/16/22 10/16/22 History release blood sugar diagnostic (Contour 10/16/22 10/16/22 History Test Strips) blood-glucose meter 10/16/22 10/16/22 History icosapent ethyl 1 gram capsule 2 g PO BID High cholesterol 10/16/22 10/16/22 History (Vascepa) lancets 21 gauge (Color Lancets) 10/16/22 10/16/22 History lisinopril 10 mg tablet 10 mg PO DAILY High blood pressure 10/16/22 10/16/22 History metformin 500 mg tablet 500 mg PO BID Diabetes 10/16/22 10/16/22 History multivitamin 1 tab PO DAILY Supplement 10/16/22 10/16/22 History New Prescriptions to Start Prescriptions: Allergies Allergy/AdvReac Type Severity Reaction Status Date / Time Penicillins [PENICILLINS] Allergy Unknown Verified 08/14/22 14:08 Exam Data for Last 24 hours Vital signs and Labs for Last 24 Hours: Temp Pulse Resp BP Pulse Ox 98.0 F 47 L 20 103/63 L 98
[2022-10-16 12:38] LABS: PTT Heparin (inpatient only) 80.7 Seconds (23.6-34.0)
--- NOTE | 2022-10-16 13:10 | HMH.PHAHEP ---
[facility] Pharmacy Heparin Dosing Demographic Data Admission date:: 10/16/22 Date: 10/16/22 Time: 13:11 Allergies Allergy/AdvReac Type Severity Reaction Status Date / Time Penicillins [PENICILLINS] Allergy Unknown Verified 08/14/22 14:08 Height: 1.85 m Weight: 124.738 kg Indication Medication therapy:: Heparin Current Indications:: NSTEMI Current Active Problems (Updated 10/16/22 @ 15:54 by Alec Gutiérrez MD) CAD (coronary artery disease), [place] coronary artery (Acute) Obesity (Acute) Former tobacco use (Acute) Junctional rhythm (Acute) PVCs (premature ventricular contractions) (Acute) Sinus bradycardia (Acute) Non-ST elevated myocardial infarction (non-STEMI) (Acute) Angina pectoris, unstable (Acute) Type 2 diabetes mellitus (Chronic) Hyperlipidemia (Chronic) Hypertension (Chronic) CVA?: No Bleeding problem?: No Kidney disease?: No HI?: Yes Desired PTT range:: 50-75 seconds Labs Anticoagulation Lab Results:: 10/16/22 06:48 Hgb 17.5 Hct 51.3 Plt Count 230 Monitoring Dose Monitor 1: Date: 10/16/22 Time: 11:14 PTT Result:: 80.7 SECONDS Infusion Rate:: INITIATE HEPARIN DRIP AT 1000 UNITS/HOUR = 20 ML/HOUR. 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 Dose Monitor 2: Date: 10/16/22 Time: 15:30 PTT Result:: 41.0 SECONDS Infusion Rate:: INCREASED HEPARIN DRIP RATE TO 1250 UNITS/HOUR = 25 ML/HOUR AND BOLUS 3000 UNITS HEPARIN ONCE ([facility] PHARMACY ENTERED SUBCUTANEOUS). Dose Monitor 3: Date: 10/16/22 Time: 21:30 PTT Result:: 40.0 SECONDS Infusion Rate:: INCREASE HEPARIN DRIP RATE TO 1500 UNITS/HOUR = 30 ML/HOUR AND BOLUS 3000 UNITS HEPARIN IV ONCE. Core Measures Is INR > or = 2 at discharge?: No Most Recent Labs:: Laboratory Results - last 24 hr 10/16/22 06:45: NT-Pro-B Natriuret Pep 271 H 10/16/22 06:48: WBC 6.5, RBC 5.81, Hgb 17.5, Hct 51.3, MCV 88.3, MCH 30.0, MCHC 34.0, RDW 14.5, Plt Count 230, MPV 7.7, Neut % (Auto) 74.2, Lymph % (Auto) 15.3, [place] % (Auto) 7.6, Eos % (Auto) 1.5, Baso % (Auto) 1.4, Neut # (Auto) 4.8, Lymph # (Auto) 1.0, [place] # (Auto) 0.5, Eos # (Auto) 0.1, Baso # (Auto) 0.1, ESR 11 10/16/22 06:48: Sodium 135 L, Potassium 4.2, Chloride 100, Carbon Dioxide 27, Anion Gap 12.2, BUN 21 H, Creatinine 1.00, Estimated Creat Clear 139, Estimated GFR 77, Est GFR ( Amer) 93, Glucose 192 H, Calcium 9.4, Total Bilirubin 0.7, AST 57, ALT 69, Alkaline Phosphatase 81, Troponin I 0.22 H, C-Reactive Protein 0.9, Total Protein 7.6, Albumin 4.6, Globulin 3.0, Albumin/Globulin Ratio 1.5, Procalcitonin 0.098 10/16/22 06:48: Triglycerides 353 H, Cholesterol 206 H, LDL Cholesterol Direct 120.39, VLDL Cholesterol 71 H, HDL Cholesterol 23 L, Cholesterol/HDL Ratio 9.0 H 10/16/22 06:48: Hemoglobin A1c 6.3 H 10/16/22 09:33: Activated Clotting Time 142 H 10/16/22 11:35: APTT 80.7 H* If INR was < than 2.0 why was therapy stopped?: PATIENT WAS TRANSFERRED TO HIGHER LEVEL OF CARE, DRIP CONTINUED EN ROUTE. Were Heparin and Warfarin started on the same day?: No If not, why?: PATIENT WAS TRANSFERRED TO HIGHER LEVEL OF CARE.
[2022-10-16 13:24] LABS: POC Glucose,Bedside 120 (70-110)
[2022-10-16 16:48] LABS: POC Glucose,Bedside 148 (70-110)
--- NOTE | 2022-10-16 16:50 | PC.NURSE ---
Spoke with Dimitry. Pt will get 3000 unit bolus of heparin. Increase Heparin from 1000 units to 1250 units/hr. Pt is resting in bed. Has c/o some discomfort to chest since arrival to floor. Radial band off. DSG to radial in place. No drainage noted. Family at bedside.
--- NOTE | 2022-10-16 20:41 | PC.NURSE ---
Received bed assignment at this time. [facility] 8th floor Rm 128
--- NOTE | 2022-10-16 20:50 | EXP.DC.SUM ---
General Admission date:: 10/16/22 Discharge date: 10/16/22 HPI HPI HPI: Mr. Alvarez is a 57-year-old gentleman who presented to the ER at [facility] on 10/16/22 with complaints of chest pain and pressure across his chest radiating into his arms. Reports it started a few weeks ago and has been intermittent. Pain is pressure-like, aching across his chest. Radiates down both arms, worse in the left. He has had some numbness and tingling in his arms. Occasional diaphoresis and dyspnea along with this pain. Denies any nausea, vomiting, increased belching. Reason for presenting today, he woke up this morning at approximately 3:30 in the morning with worsening chest pain, and has not resolved. Drove himself to the ER for evaluation. Pain was reportedly a 9 out of 10 in intensity. Started on nitroglycerin drip in the ER with some minor improvement. Initial troponin elevated at 0.22. Cardiology consulted and patient taken to the Lead Electrical Engineer. Medicine consulted for admission after left heart cath. Cardiology discussed case with Cardiothoracic Surgeon at . The patient with multi-vessel disease. Brought back to the floor on heparin and nitro drip. Stable on transfer back to floor. Awaiting bed at . Hospital Course Hospital Course Hospital Course: The patient was taken to the chemical laboratory scientist and findings are below. Bone Char Operator Dr. Orta discussed with Dr. Ventura at who accepted the patient for transfer. Findings per Bone Char Operator below. ANGIOGRAPHIC RESULTS The left main artery Has an ostial 40% stenosis The left anterior descending artery Has proximal hazy 90% stenosis The circumflex artery Nondominant proximally occluded with scant left to left and right to left collateral The right coronary artery Dominant and has an ostial 40% stenosis with a mid vessel 60% stenosis and a distal concentric 80% stenosis immediately proximal to the bifurcation of the PDA and the posterior lateral branch The HSU ventriculogram reveals Not performed The left ventricular end-diastolic pressure Not measured IMPRESSION Severe to critical three-vessel coronary disease as described above Attempted angioplasty of a chronically occluded circumflex artery in which only minimal attempted crossing the vessel was undertaken PLAN 1. Discontinue Brilinta 2. Continue high intensity statin and aspirin therapy 3. Transfer to [facility] for coronary bypass surgery 4. Started on heparin drip as well as nitroglycerin drip Exam Data for Last 24 hours Vital signs and Labs for Last 24 Hours: Temp Pulse Resp BP Pulse Ox 99.0 F 51 L 14 141/43 H 97 10/16/22 20:00 10/16/22 20:00 10/16/22 20:00 10/16/22 20:00 10/16/22 20:00 Laboratory Results - last 24 hr 10/16/22 06:45: NT-Pro-B Natriuret Pep 271 H 10/16/22 06:48: WBC 6.5, RBC 5.81, Hgb 17.5, Hct 51.3, MCV 88.3, MCH 30.0, MCHC 34.0, RDW 14.5, Plt Count 230, MPV 7.7, Neut % (Auto) 74.2, Lymph % (Auto) 15.3, [place] % (Auto) 7.6, Eos % (Auto) 1.5, Baso % (Auto) 1.4, Neut # (Auto) 4.8, Lymph # (Auto) 1.0, [place] # (Auto) 0.5, Eos # (Auto) 0.1, Baso # (Auto) 0.1, ESR 11 10/16/22 06:48: Sodium 135 L, Potassium 4.2, Chloride 100, Carbon Dioxide 27, Anion Gap 12.2, BUN 21 H, Creatinine 1.00, Estimated Creat Clear 139, Estimated GFR 77, Est GFR ( Amer) 93, Glucose 192 H, Calcium 9.4, Total Bilirubin 0.7, AST 57, ALT 69, Alkaline Phosphatase 81, Troponin I 0.22 H, C-Reactive Protein 0.9, Total Protein 7.6, Albumin 4.6, Globulin 3.0, Albumin/Globulin Ratio 1.5, Procalcitonin 0.098 10/16/22 06:48: Triglycerides 353 H, Cholesterol 206 H, LDL Cholesterol Direct 120.39, VLDL Cholesterol 71 H, HDL Cholesterol 23 L, Cholesterol/HDL Ratio 9.0 H 10/16/22 06:48: Hemoglobin A1c 6.3 H 10/16/22 09:33: Activated Clotting Time 142 H 10/16/22 11:35: APTT 80.7 H* 10/16/22 13:13: POC Glucose 120 H 10/16/22 15:53: APTT 41.0 H 10/16/22 15:53: Troponin I 13.20 H 10/16/22 16:36: POC Glucose 148 H I & O f
--- NOTE | 2022-10-16 20:57 | PC.NURSE ---
Attempted to call report to [facility]
--- NOTE | 2022-10-16 22:07 | PC.NURSE ---
Report called to [facility]
--- NOTE | 2022-10-16 22:14 | PC.NURSE ---
Sayra Sebastian 1965 Active Medications Acetaminophen (Acetaminophen 325mg Tab) 325 mg PO Q4HP PRN PRN Reason: Mild Pain Stop: 11/15/22 09:50 Acetaminophen (Acetaminophen 325mg Tab) 650 mg PO Q4HP PRN PRN Reason: Mild to Moderate Pain Stop: 11/15/22 09:50 Aspirin (Aspirin Ec 81mg Tablet) 81 mg PO DAILY SOSA Stop: 11/15/22 08:59 Last Admin: 10/16/22 12:55 Dose: Not Given Atorvastatin Calcium (Atorvastatin 40mg Tablet) 80 mg PO HS [facility] Stop: 11/15/22 20:59 Last Admin: 10/16/22 20:38 Dose: 80 mg Nitroglycerin/Dextrose (Nitroglycerin 50mg/250ml D5w) 250 mls @ 1.5 mls/hr IV .Q24H [facility]; Protocol Stop: 11/15/22 07:44 Last Admin: 10/16/22 11:30 Dose: 2 mcg/min, 0.6 mls/hr Sodium Chloride (Sod Chloride 0.9% 500ml Bag) 1,000 mls @ 25 mls/hr IV .Q25H [facility] Stop: 10/17/22 09:27 Last Admin: 10/16/22 09:40 Dose: 25 mls/hr Heparin Sodium/Dextrose (Heparin 25,000 Units In D5w 500ml Premix) 500 mls @ 25 mls/hr IV .Q20H [facility] Stop: 11/15/22 11:29 Last Admin: 10/16/22 12:55 Dose: 20 mls/hr Insulin Human Lispro (Humalog 100 Units/Ml 3ml Vial (Ssi)) 0 unit SQ ACHS [facility]; Protocol Stop: 11/15/22 10:59 Last Admin: 10/16/22 20:40 Dose: Not Given Lisinopril (Lisinopril 10mg Tablet) 10 mg PO DAILY SOSA Stop: 11/15/22 08:59 Last Admin: 10/16/22 13:09 Dose: Not Given Morphine Sulfate (Morphine 2mg/Ml Syringe) 1 mg IV Q2HP PRN PRN Reason: Severe Pain Stop: 11/15/22 12:16 Last Admin: 10/16/22 12:57 Dose: 1 mg Ondansetron HCl (Ondansetron 4mg/2ml Vial) 4 mg IV Q6HP PRN PRN Reason: Nausea Stop: 11/15/22 09:50 Sodium Chloride (Sodium Chloride 0.9% 10ml Flush Syringe) 10 ml IV NEEDED PRN PRN Reason: Maintain IV Site Stop: 11/15/22 09:26
--- NOTE | 2022-10-16 22:31 | PC.NURSE ---
Heparin gtt increased to 1500 units/hr per [facility]
--- NOTE | 2022-10-16 23:23 | PC.NURSE ---
[facility] at bedside for transport
--- NOTE | 2022-10-16 23:31 | PC.NURSE ---
pt transfered out @ 23:30 via stretcher
[2022-10-18 02:20] LABS: POC Glucose,Bedside 110 (70-110)
== END 2022-10-16 23:31 | disposition short-term general hospital (02) | DRG 251 ==
LOC: ER 07:53 → CATHLAB 08:00 → 2ND 09:46
PROVIDERS: Internal Medicine; Admitting Provider Internal Medicine Adolescent Medicine; Emergency Provider Emergency Medicine; PCP Physician Assistant; Visit Provider Internal Medicine Adolescent Medicine
PROC: 02703ZZ Dilation of Coronary Artery, One Artery, Percutaneous Approach (ICD-10-PCS; principal; 2022-10-16 11:30)
DX: I21.4 Non-ST elevation (NSTEMI) myocardial infarction (principal); E11.9 Type 2 diabetes mellitus without complications; E66.9 Obesity, unspecified; Z68.36 Body mass index [BMI] 36.0-36.9, adult; Z79.84 Long term (current) use of oral hypoglycemic drugs; E78.5 Hyperlipidemia, unspecified; I25.2 Old myocardial infarction; I10 Essential (primary) hypertension; I25.10 Atherosclerotic heart disease of native coronary artery without angina pectoris
CPT/HCPCS: 36415; 71046; 80053; 80061; 82962; 83036; 83880; 84145; 84484; 85025; 85347; 85651; 85730; 86140; 93005; 93306; 93458; 99152; 99153; 99285; C1725; C1760; C1769; C9803; J1644; Q9967; U0003; U0005

== ENCOUNTER → 2022-12-17 09:10 | Outpatient (CLI) | payer BC, SELFPAY ==
[2022-12-17 11:36] LABS: Basophils # 0.1 K/mm3 (0-0.2); Basophils % 0.9 % (0.1-2.0); Eosinophils # 0.2 K/mm3 (0.0-0.4); Eosinophils % 3.2 % (0.1-12.0); Hematocrit 47.7 % (42.0-52.0); Hemoglobin 15.7 g/dL (14.1-18.0); Lymphocytes # 1.4 K/mm3 (0.7-4.5); Lymphocytes % 19.6 % (10-50); Mean Corpuscular HGB Conc 32.8 g/dL (31.8-35.4); Mean Corpuscular Hemoglobin 28.1 pg (27.0-31.2); Mean Corpuscular Volume 85.7 fl (80-94); Monocytes # 0.6 K/mm3 (0.1-1.0); Monocytes % 8.1 % (1.7-9.3); Neutrophils # 4.9 K/mm3 (1.8-7.8); Neutrophils % 68.2 % (37.0-80.0); Platelet Count 219 K/mm3 (142-424); Red Blood Count 5.56 M/mm3 (4.60-6.20); Red Cell Distribution Width 15.8 % (11.5-17.5); White Blood Count 7.1 K/mm3 (4.8-10.8)
[2022-12-17 12:34] LABS: Chloride 98 mmol/L (98-107); Potassium 4.1 mmoL/L (3.5-5.1); Sodium 139 mmol/L (136-145)
[2022-12-17 12:36] LABS: Blood Urea Nitrogen 15 mg/dl (9-20); Estimated Glomerular Filt Rate 87 ml/min (>60); GFR (African American) 105 ML/MIN (>60)
[2022-12-17 12:37] LABS: Alanine Aminotransferase 35 U/L (12-78); Albumin Level 4.2 g/dl (3.5-5.0); Alkaline Phosphatase 90 U/L (38-126); Anion Gap 21.1 mEq/L (5-15); Aspartate Amino Transferase 32 U/L (17-59); Bilirubin,Indirect 0.3 mg/dL (0.0-0.9); Bilirubin,Total 0.3 mg/dl (0.2-1.3); Bilirubin,Unconjugated 0.3 mg/dL (0.0-1.1); Calcium 9.4 mg/dl (8.4-10.2); Carbon Dioxide 24 mmol/L (22.0-30.0); Cholesterol 129 mg/dl (140-200); Glucose 134 mg/dl (74-100); Total Protein,Serum 6.7 g/dl (6.3-8.2); Triglycerides 271 mg/dl (30-150); VLDL Cholesterol 54 mg/dL (0-40)
[2022-12-17 12:38] LABS: Chol/HDL Ratio 4.8 (1-3.5); HDL Cholesterol 27 mg/dl (40-60); Magnesium 1.9 mg/dl (1.6-2.3)
[2022-12-17 12:52] LABS: Free T4 (Free Thyroxine) 0.88 ng/dl (0.78-2.19)
[2022-12-17 13:08] LABS: Thyroid Stimulating Hormone 3.46 uIU/mL (0.465-4.68)
== END ==
PROVIDERS: PCP Physician Assistant; Visit Provider Physician Assistant
DX: I25.10 Atherosclerotic heart disease of native coronary artery without angina pectoris (principal); I10 Essential (primary) hypertension; E78.2 Mixed hyperlipidemia; Z95.1 Presence of aortocoronary bypass graft
CPT/HCPCS: 36415; 80048; 80061; 80076; 83735; 84439; 84443; 85025

== ENCOUNTER 2023-01-09 12:54 | Outpatient (RCR) | payer BC, SELFPAY | END 2023-01-09 14:00 | disposition home or self-care (01) | LOC: PT 12:54 | PROVIDERS: Visit Provider Internal Medicine | DX: I25.10 Atherosclerotic heart disease of native coronary artery without angina pectoris (principal); Z95.1 Presence of aortocoronary bypass graft | CPT/HCPCS: 93798 ==

== ENCOUNTER 2023-08-13 19:14 | Outpatient (CLI) | payer BC, SELFPAY ==
[2023-08-13 18:55] LABS: Basophils # 0.1 K/mm3 (0-0.2); Basophils % 0.7 % (0.1-2.0); Eosinophils # 0.2 K/mm3 (0.0-0.4); Eosinophils % 2.4 % (0.1-12.0); Hematocrit 47.9 % (42.0-52.0); Hemoglobin 16.5 g/dL (14.1-18.0); Lymphocytes # 1.5 K/mm3 (0.7-4.5); Lymphocytes % 21.8 % (10-50); Mean Corpuscular HGB Conc 34.4 g/dL (31.8-35.4); Mean Corpuscular Hemoglobin 30.8 pg (27.0-31.2); Mean Corpuscular Volume 89.4 fl (80-94); Mean Platelet Volume 8.3 fl (7.4-10.4); Monocytes # 0.6 K/mm3 (0.1-1.0); Monocytes % 8.3 % (1.7-9.3); Neutrophils # 4.7 K/mm3 (1.8-7.8); Neutrophils % 66.8 % (37.0-80.0); Platelet Count 230 K/mm3 (142-424); Red Blood Count 5.36 M/mm3 (4.60-6.20); Red Cell Distribution Width 15.2 % (11.5-17.5); White Blood Count 7.1 K/mm3 (4.8-10.8)
[2023-08-13 19:24] LABS: Chloride 100 mmol/L (98-107); Potassium 4.7 mmoL/L (3.5-5.1); Sodium 138 mmol/L (136-145)
[2023-08-13 19:26] LABS: Alanine Aminotransferase 62 U/L (12-78); Alkaline Phosphatase 104 U/L (38-126); Aspartate Amino Transferase 50 U/L (17-59); Bilirubin,Total 0.6 mg/dl (0.2-1.3); Blood Urea Nitrogen 18 mg/dl (9-20); Estimated Glomerular Filt Rate 87 ml/min (>60); GFR (African American) 105 ML/MIN (>60)
[2023-08-13 19:27] LABS: Albumin Level 4.3 g/dl (3.5-5.0); Albumin/Globulin Ratio 1.7 (1.1-1.8); Anion Gap 15.7 mEq/L (5-15); Calcium 9.1 mg/dl (8.4-10.2); Carbon Dioxide 27 mmol/L (22.0-30.0); Chol/HDL Ratio 5.8 (1-3.5); Cholesterol 116 mg/dl (140-200); Globulin 2.6 g/dL (1.3-3.2); Glucose 187 mg/dl (74-100); HDL Cholesterol 20 mg/dl (40-60); Total Protein,Serum 6.9 g/dl (6.3-8.2)
[2023-08-13 19:37] LABS: Triglycerides 444 mg/dl (30-150)
[2023-08-13 19:42] LABS: Direct LDL Cholesterol 65.49 mg/dL (100-129)
[2023-08-13 19:44] LABS: 25-OH Vitamin D, Total 33.5 ng/mL (30-100)
[2023-08-13 19:58] LABS: Thyroid Stimulating Hormone 2.09 uIU/mL (0.465-4.68)
[2023-08-13 20:42] LABS: Hemoglobin A1C 7.2 % (4.0-6.0)
== END 2023-08-13 23:59 ==
LOC: LAB.DROPOF 19:14
PROVIDERS: PCP Physician Assistant; Visit Provider Physician Assistant
DX: E11.9 Type 2 diabetes mellitus without complications (principal); E66.9 Obesity, unspecified; Z68.35 Body mass index [BMI] 35.0-35.9, adult; Z79.84 Long term (current) use of oral hypoglycemic drugs; Z79.899 Other long term (current) drug therapy
CPT/HCPCS: 80053; 80061; 82306; 83036; 84443; 85025

== ENCOUNTER 2023-10-02 15:07 | Outpatient (CLI) | payer BC, SELFPAY ==
--- NOTE | 2023-10-02 15:22 | CA_ITS ---
APPROVED REPORT EXAM: Comprehensive 2D, Doppler, and color-flow Echocardiogram Deli Worker: MOSHE Pinzon, RVS Ht: 6 ft 1 in Wt: 275lbs BSA: 2.46 BP: 145/75 mmHg Indications: CAD-CABGx3 Echo Enhancing Agent Comments: TDS: large body habitus 2D Dimensions LVDd 5.38 cm LVEF (Visual) 64.50 % LVDs 3.47 cm LA Volume 62.00 mL Aortic Root 2.74 cm LA Volume Index 25.20 mL/m2 (M/F) 16-34 Left Atrium 3.98 cm EF AP4 49.40 % LVOT 2.10 cm (M/F) 1.5-2.5 GL Strain -17.3 % M-Mode Dimensions RVDd 2.21 cm (0.9-2.6) LVDd 5.38 cm (3.5-5.7) Ao Diam 4.52 cm (2.0-3.7) LVDs 3.57 cm (3.5-5.7) IVSd 1.28 cm (0.6-1.1) PWd 1.16 cm (0.6-1.1) EF (Teich) 65.70% EPSs 0.64 cm FS 36.23% EDV (Teich) 155.60 mL TAPSE 0.75 (<1.7) ESV (Teich) 53.30 mL LV Diastology E Decel Time 236 (160-240 msec) E/A Ratio 1.20 MED E' 7.2 (>= 7 cm/sec) MED A' 8.90 cm/s E'/MED E' Ratio 8.47 (<= 14) LAT E' 6.8 (>= 10 cm/sec) LAT A' 9.70 cm/s E/LAT E' Ratio 8.97 (<= 14) Aortic Valve LVOT Max 106.0 (70-110 cm/s) JASSON Index 1.22 cm2/m2 LVOT VTI 20.98 cm AoV Peak Koko. 124.0 (50-130 cm/s) AO Mean GR. 3.10 (<5 mmHg) AO VTI 24.3 (18-25 cm) JASSON (VTI) 2.99 (2.5-4.5 cm2) Mitral Valve MV E Max Koko. 61.0 (40-130 cm/s) MV A Velocity 51.0 (40-130 cm/s) E/A Ratio 1.20 MV Decel. Time 236 (160-240 ms) Tricuspid Valve TR P. Velocity 248.00 cm/s RAP Estimate 10.00 mmHg RVSP 34.60 mmHg Left Ventricle The left ventricle is normal size. The left ventricular systolic function is low normal. There is normal left ventricular wall thickness. There is normal LV segmental wall motion. The left ventricular diastolic function is normal. LVEF is 50% Right Ventricle Right ventricle is mildly dilated. Right ventricle is mildly hypokinetic. Atria The left atrium size is normal. The right atrium size is normal. There is no Doppler evidence of interatrial shunt. Aortic Valve The aortic valve opens well. There is no aortic valvular stenosis. No aortic regurgitation is present. Mitral Valve The mitral valve is normal in structure. No evidence of mitral valve stenosis. Trace mitral valve regurgitation noted. Tricuspid Valve The tricuspid valve leaflets are thin and pliable Mild tricuspid regurgitation. RVSP is 20 mmHg plus RA pressure. Pulmonic Valve The pulmonary valve is normal in structure. Trace pulmonic regurgitation. Great Vessels The aortic root is normal in size. The ascending aorta is normal in size. The IVC is not well-visualized. Pericardium There is no pericardial effusion. Conclusion Low normal LV systolic function (LVEF 50%). Mild RV dilation with mild reduction in RV function. Mild TR. Electronically signed by : Mindy Martinez MD 10/06/2023 13:02:33
== END 2023-10-02 23:59 ==
LOC: RT 15:13
PROVIDERS: PCP Physician Assistant; Visit Provider Physician Assistant
DX: I25.10 Atherosclerotic heart disease of native coronary artery without angina pectoris (principal); I50.20 Unspecified systolic (congestive) heart failure; E78.5 Hyperlipidemia, unspecified; I10 Essential (primary) hypertension; Z95.1 Presence of aortocoronary bypass graft
CPT/HCPCS: 93306

== ENCOUNTER 2023-11-11 16:47 | Emergency (ER) | payer BC, SELFPAY ==
[2023-11-11] VITALS (7 sets, daily range): BP systolic 133–157; BP diastolic 63–78; PULSE 43–55; RESP 11–20; TEMP 36.7; O2SAT 95–98; BMI 34.0
--- NOTE | 2023-11-11 17:00 | HMH.EDGENADL ---
Discharge Plan Disposition Patient Disposition: Home, Self-Care Condition: Good Prescriptions Prescriptions: New meclizine 25 mg tablet 25 mg PO QID PRN (Reason: dizziness) Qty: 20 0RF No Action lisinopril 20 mg tablet 20 mg PO DAILY Qty: 90 3RF rosuvastatin 10 mg tablet 10 mg PO DAILY Qty: 90 3RF glipizide 5 mg tablet extended release 24hr 5 mg PO DAILY Qty: 90 3RF icosapent ethyl [Vascepa] 1 gram capsule See Rx Instructions .ROUTE .COMPLEX Qty: 120 0RF Dose Instruction: TAKE 2 CAPSULES BY MOUTH TWICE A DAY FOR HIGH CHOLESTEROL Rx Instructions: TAKE 2 CAPSULES BY MOUTH TWICE A DAY FOR HIGH CHOLESTEROL aspirin 81 mg tablet,delayed release (DR/EC) See Rx Instructions .ROUTE .COMPLEX Qty: 90 0RF Dose Instruction: TAKE 1 TABLET BY MOUTH ONCE DAILY Rx Instructions: TAKE 1 TABLET BY MOUTH ONCE DAILY metformin 500 mg tablet See Rx Instructions .ROUTE .COMPLEX Qty: 180 0RF Dose Instruction: TAKE ONE TABLET BY MOUTH TWICE A DAY Rx Instructions: TAKE ONE TABLET BY MOUTH TWICE A DAY multivitamin Tablet 1 tab PO DAILY Referrals Follow up/Referrals: Yamil Barone MD [Physician] - See instructions Bhavna Vera PA [Primary Care Provider] - See instructions Activity Restrictions/Add. Instructions Additional Instructions/Restrictions: Please do not take meclizine and drive but also you should not drive if having a flare of dizziness. 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 Follow-up with your PCP for any worsening change in your symptoms. 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 Clinical Impressions Clinical Impression: Dizziness Stand Alone Forms Stand Alone Forms: Work/School Release Discharge ED Provider: Manolo Hamm General Adult HPI <TOM Nieto - Last Filed: 11/11/23 19:38> General Chief complaint: Dizziness Stated complaint: dizziness, vertigo, nausea, vomiting Time Seen by Provider: 11/11/23 17:00 History of Present Illness HPI narrative: Patient presents with a 24-hour history of acute dizziness nausea and vomiting. 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 He had difficulty for the rest of the night and occurred both at rest and while vertical but it was worse when being vertical. Today patient states that his dizziness is improved however it still positional and with change of positions. Patient is not dizzy at rest supine. He denies headache chest pain fever chills hemoptysis hematochezia melena nausea vomit diarrhea. Patient is and has a cardiovascular history and is status post coronary artery bypass graft as well as a type II diabetic not on insulin Related Data Home Medications Medication Instructions Recorded Confirmed multivitamin 1 tab PO DAILY Supplement 10/16/22 09/17/23 Previous Rx's Medication Instructions Recorded rosuvastatin 10 mg tablet 10 mg PO DAILY #90 tabs 03/24/23 lisinopril 20 mg tablet 20 mg PO DAILY #90 tabs 08/13/23 glipizide 5 mg tablet, extended 5 mg PO DAILY #90 tabs 08/15/23 release 24 hr icosapent ethyl 1 gram capsule See Rx Instructions .Route 09/26/23 (Vascepa) .COMPLEX #120 caps aspirin 81 mg tablet,delayed See Rx Instructions .Route 10/01/23 release .COMPLEX #90 tabs metformin 500 mg tablet See Rx Instructions .Route 11/06/23 .COMPLEX #180 tabs meclizine 25 mg tablet 25 mg PO QID PRN dizziness #20 tabs 11/11/23 Allergies Allergy/AdvReac Type Severity Reaction Status Date / Time Penicillins [PENICILLINS] Allergy Unknown Verified 09/17/23 15:09 [facility] <TOM Nieto - Last Filed: 11/11/23 19:38> [facility] Disclaimer: The information contained in this section may have been updated after the patient was seen, as this information can be updated by other users. Medical History (Updated 11/11/23 @ 19:24 by TOM Nieto) HFrEF (heart failure with reduced ejection fraction) Coronary artery disease Appendicitis Former tobacco use Junctional rhythm PVCs (premature ventricular contractions) Sinus bradycardia Non-ST elevated myocardial infarction (non-STEMI) Angina pectoris, unstable Type 2 diabetes mellitus Diabetes Hyperlipidemia Hypertension Surgical History History of tonsillectomy and adenoidectomy History of colonoscopy History of heart bypass surgery Hx of cholecystectomy History of appendectomy Family History Brother Coronary artery disease Other Hyperlipidemia Hypertension Social History Smoking Status: Never smoker alcohol intake: former substance use type: denies use current occupational status: employed Travel in the last 8 weeks: None household members: spouse and family housing: house marital status: current occupational exposures/hazards: No caffeine: Yes <TOM Nieto - Last Filed: 11/11/23 19:38> ROS Obtained: Yes Systems reviewed as appropriate & no additional complaints except as documented Physical Exam <TOM Nieto - Last Filed: 11/11/23 19:38> General General appearance: alert and in no apparent distress Head Head exam: atraumatic, normocephalic and normal inspection Eye Eye exam: Present normal appearance, PERRL, EOMI and nystagmus ENT ENT exam: Present normal exam, normal oropharynx, mucous membranes moist and TM's normal bilaterally Neck Neck exam: Present normal inspection and full ROM; Absent lymphadenopathy Chest Chest inspection: Present normal inspection and symmetric chest wall rise Respiratory Respiratory exam: Present normal lung sounds bilaterally and respiratory distress Cardiovascular Cardiovascular exam: Present normal rhythm, bradycardia (Sinus), normal heart sounds, +S1 and +S2 Abdominal Exam Abdominal exam: Present soft and normal bowel sounds; Absent tenderness Extremities Exam Extremities exam: Present normal inspection and full ROM Back Exam Back exam: Present normal inspection and full ROM Neurological Exam Neurological exam: Present alert, oriented X3, CN II-XII intact, normal gait and reflexes normal; Absent motor sensory deficit Psychiatric Psychiatric exam: Present normal affect and normal mood Skin Skin exam: Present warm, dry and normal color Medical Decision Making <TOM Nieto - Last Filed: 11/11/23 19:38> Medical Records Medical records reviewed: Yes I reviewed the patient's medical records. Markel Inquiry Pt receiving controlled substance: No Vital Signs: 11/11/23 16:49 11/11/23 16:59 11/11/23 17:31 Temperature 98.1 F Temperature Source Oral Pulse Rate 50 L 49 L Pulse Rate [Left Radial] 55 L Respiratory Rate 20 11 L 13 Blood Pressure 151/69 H 146/63 H Blood Pressure [Left Arm] 151/69 H Blood Pressure Mean Blood Pressure Mean [Left Arm] 96 02 Sat by Pulse Oximetry 97 97 96 Oxygen Delivery Method Room Air Room Air Room Air 11/11/23 18:01 11/11/23 19:01 11/11/23 19:31 Temperature Temperature Source Pulse Rate 52 L 43 L 45 L Pulse Rate [Left Radial] Respiratory Rate 13 13 12 Blood Pressure 133/68 138/68 157/76 H Blood Pressure [Left Arm] Blood Pressure Mean 87 Blood Pressure Mean [Left Arm] 02 Sat by Pulse Oximetry 98 97 98 Oxygen Delivery Method Room Air Room Air 11/11/23 19:44 Temperature 98.0 F Temperature Source Pulse Rate 52 L Pulse Rate [Left Radial] Respiratory Rate 20 Blood Pressure 156/78 H Blood Pressure [Left Arm] Blood Pressure Mean Blood Pressure Mean [Left Arm] 02 Sat by Pulse Oximetry Oxygen Delivery Method Room Air Lab Data Lab results reviewed: Yes I reviewed the patient's lab results. Lab Results 11/11/23 16:58: Sodium 139, Potassium 4.2, Chloride 104, Carbon Dioxide 27, Anion Gap 12.2, BUN 21 H, Creatinine 0.90, Estimated Creat Clear 152, Estimated GFR 87, Est GFR ( Amer) 105, Glucose 146 H, Calcium 10.1, Magnesium 2.2, TSH 1.72 11/11/23 16:58 Orders (Tests/Meds): ED MEDICATIONS Discontinued Medications Generic Name Dose Route Start Last Admin Trade Name Freq PRN Reason Stop Dose Admin Iopamidol 100 ml 11/11/23 18:42 11/11/23 18:43 Iopamidol-370 (76%);100ml Bottle IV 11/11/23 18:43 100 ml ONCE ONE Administration Sodium Chloride 10 ml 11/11/23 18:42 11/11/23 18:43 Sodium Chloride 0.9% 10ml Syr (Rad Only) IV 11/11/23 18:43 10 ml ONCE ONE Administration Sodium Chloride 50 ml 11/11/23 18:42 11/11/23 18:42 0.9 % Sodium Chloride 50 Ml Vial IV 11/11/23 18:43 50 ml ONCE ONE Administration ORDERS Category Date Time Status CT angio head Stat Cat Scan 11/11/23 17:[address] angio neck Stat Cat Scan 11/11/23 17:[address] head/brain wo con Stat Cat Scan 11/11/23 17:16 Completed BMP [Basic Metabolic Panel] Stat Lab 11/11/23 16:58 Completed Magnesium Stat Lab 11/11/23 16:58 Completed TSH [Thyroid Stimulating Hormone] Stat Lab 11/11/23 16:58 Completed Medical Decision Narrative: In summary patient is a 58-year-old male who presents to the emergency department for evaluation of dizziness nausea vomiting. Patient is hemodynamically stable although his heart rate is sinus bradycardic, upon arrival, and afebrile. Physical exam is unremarkable for any evidence of middle ear infection upper respiratory tract infection focal neurologic deficit. Patient does have provoked nystagmus with recurrence of his symptoms with nausea. Differential diagnosis includes vestibular disorder versus central vertigo versus space-occupying lesion versus stroke versus cardiovascular compromise versus acute infection etc. Initial workup will be conducted with hematologic labs CT scan of the head without contrast and CTA of the head and neck. Initial interventions include fluid bolus and meclizine. Initial workup reviewed by me shows that his hematologic labs are unremarkable and my informal interpretation of his imaging shows no acute processes that explain the patient's symptoms. Upon repeat evaluation patient does report improvement in his dizziness as well as nausea. Given this patient is appropriate for discharge with a prescription for meclizine and referral to ear nose and throat. 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 <Manolo Hamm MD - Last Filed: 11/11/23 23:28> Vital Signs: 11/11/23 16:49 11/11/23 16:59 11/11/23 17:31 Temperature 98.1 F Temperature Source Oral Pulse Rate 50 L 49 L Pulse Rate [Left Radial] 55 L Respiratory Rate 20 11 L 13 Blood Pressure 151/69 H 146/63 H Blood Pressure [Left Arm] 151/69 H Blood Pressure Mean Blood Pressure Mean [Left Arm] 96 02 Sat by Pulse Oximetry 97 97 96 Oxygen Delivery Method Room Air Room Air Room Air 11/11/23 18:01 11/11/23 19:01 11/11/23 19:31 Temperature Temperature Source Pulse Rate 52 L 43 L 45 L Pulse Rate [Left Radial] Respiratory Rate 13 13 12 Blood Pressure 133/68 138/68 157/76 H Blood Pressure [Left Arm] Blood Pressure Mean 87 Blood Pressure Mean [Left Arm] 02 Sat by Pulse Oximetry 98 97 98 Oxygen Delivery Method Room Air Room Air 11/11/23 19:44 Temperature 98.0 F Temperature Source Pulse Rate 52 L Pulse Rate [Left Radial] Respiratory Rate 20 Blood Pressure 156/78 H Blood Pressure [Left Arm] Blood Pressure Mean Blood Pressure Mean [Left Arm] 02 Sat by Pulse Oximetry Oxygen Delivery Method Room Air Lab Data Lab Results 11/11/23 16:58: Sodium 139, Potassium 4.2, Chloride 104, Carbon Dioxide 27, Anion Gap 12.2, BUN 21 H, Creatinine 0.90, Estimated Creat Clear 152, Estimated GFR 87, Est GFR ( Amer) 105, Glucose 146 H, Calcium 10.1, Magnesium 2.2, TSH 1.72 Orders (Tests/Meds): ED MEDICATIONS Discontinued Medications Generic Name Dose Route Start Last Admin Trade Name Freq PRN Reason Stop Dose Admin Iopamidol 100 ml 11/11/23 18:42 11/11/23 18:43 Iopamidol-370 (76%);100ml Bottle IV 11/11/23 18:43 100 ml ONCE ONE Administration Sodium Chloride 10 ml 11/11/23 18:42 11/11/23 18:43 Sodium Chloride 0.9% 10ml Syr (Rad Only) IV 11/11/23 18:43 10 ml ONCE ONE Administration Sodium Chloride 50 ml 11/11/23 18:42 11/11/23 18:42 0.9 % Sodium Chloride 50 Ml Vial IV 11/11/23 18:43 50 ml ONCE ONE Administration ORDERS Category Date Time Status CT angio head Stat Cat Scan 11/11/23 17:[address] angio neck Stat Cat Scan 11/11/23 17:[address] head/brain wo con Stat Cat Scan 11/11/23 17:16 Completed BMP [Basic Metabolic Panel] Stat Lab 11/11/23 16:58 Completed Magnesium Stat Lab 11/11/23 16:58 Completed TSH [Thyroid Stimulating Hormone] Stat Lab 11/11/23 16:58 Completed Medical Decision Narrative: In summary patient is a 58-year-old male who presents to the emergency department for evaluation of dizziness nausea vomiting. Patient is hemodynamically stable although his heart rate is sinus bradycardic, upon arrival, and afebrile. Physical exam is unremarkable for any evidence of middle ear infection upper respiratory tract infection focal neurologic deficit. Patient does have provoked nystagmus with recurrence of his symptoms with nausea. Differential diagnosis includes vestibular disorder versus central vertigo versus space-occupying lesion versus stroke versus cardiovascular compromise versus acute infection etc. Initial workup will be conducted with hematologic labs CT scan of the head without contrast and CTA of the head and neck. Initial interventions include fluid bolus and meclizine. Initial workup reviewed by me shows that his hematologic labs are unremarkable and my informal interpretation of his imaging shows no acute processes that explain the patient's symptoms. Upon repeat evaluation patient does report improvement in his dizziness as well as nausea. Given this patient is appropriate for discharge with a prescription for meclizine and referral to ear nose and throat. 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 I was consulted by the COLLEEN, and we discussed the complexity of the problems being addressed.I approved the treatment and management plan for this patient?s care in the Emergency Department, thus performing a substantive portion of the medical decision making.Signed, Manolo Hamm MD of note, on my examination, unilateral horizontal left-sided nystagmus, no dysmetria, no dysdiadochokinesia, negative Romberg sign, no other nystagmus, negative hints exam. Critical Care <TOM Nieto - Last Filed: 11/11/23 19:38> Critical Care Time Critical Care Time: No
--- NOTE | 2023-11-11 17:07 | ECG_ITS ---
APPROVED REPORT Exam: Resting ECG HR:58 bpm ECG Measurements Heart Rate [address] 137 P 77 QRSd 156 QRS -43 QT 452 T 59 QTc 450 Conclusion SINUS BRADYCARDIA WITH FREQUENT VENTRICULAR PREMATURE COMPLEXES LEFT AXIS DEVIATION [QRS AXIS < -30] RIGHT BUNDLE BRANCH BLOCK [120+ ms QRS DURATION, UPRIGHT V1, 40+ ms S IN I/aVL/V4/V5/V6] ABNORMAL ECG UNCONFIRMED REPORT Electronically signed by : ROBERTA BABIN, 11/12/2023 06:52:38
--- NOTE | 2023-11-11 17:16 | CT_ITS ---
PROCEDURE INFORMATION: Exam: CTA Neck With Contrast Exam date and time: 11/11/2023 6:37 PM Age: 58 years old Clinical indication: Dizziness and giddiness; Additional info: Dizziness, nausea vomiting TECHNIQUE: Imaging protocol: Computed tomographic angiography of the neck with contrast. Exam focused on the cervical segments of the vasculature. 3D rendering (Not supervised by radiologist): MIP and/or 3D reconstructed images were created by the technologist. Radiation optimization: All CT scans at this facility use at least one of these dose optimization techniques: automated exposure control; mA and/or kV adjustment per patient size (includes targeted exams where dose is matched to clinical indication); or iterative reconstruction. Contrast material: ISOVUE 370; Contrast volume: 100 ml; Contrast route: INTRAVENOUS (IV); COMPARISON: CT ANGIO HEAD 11/11/2023 6:37 PM FINDINGS: Right common carotid artery: No stenosis. No dissection or occlusion. Right internal carotid artery: No stenosis of the extracranial segment. No dissection or occlusion. Right external carotid artery: No occlusion or stenosis of the origin. Left common carotid artery: No stenosis. No dissection or occlusion. Left internal carotid artery: No stenosis of the extracranial segment. No dissection or occlusion. Left external carotid artery: No occlusion or stenosis of the origin. Right vertebral artery: No stenosis. No dissection or occlusion. Left vertebral artery: No stenosis. No dissection or occlusion. Soft tissues: Normal. No significant soft tissue swelling. Bones/joints: No acute fracture. IMPRESSION: No stenosis or occlusion. REFERENCES: NASCET CRITERIA. The degree of stenosis in the cervical segment of the internal carotid artery is based on NASCET criteria. Normal is no stenosis. Mild is less than 50% stenosis. Moderate is 50-69% stenosis. Severe is 70% to 99% stenosis. Total occlusion is no detectable patent lumen.
--- NOTE | 2023-11-11 17:16 | CT_ITS ---
PROCEDURE INFORMATION: Exam: CTA Head With Contrast, Arteriography Exam date and time: 11/11/2023 6:37 PM Age: 58 years old Clinical indication: Dizziness and giddiness; Additional info: Dizziness, nausea vomiting TECHNIQUE: Imaging protocol: Computed tomographic angiography of the head with contrast. Exam focused on the arteries. 3D rendering (Not supervised by radiologist): MIP and/or 3D reconstructed images were created by the technologist. Radiation optimization: All CT scans at this facility use at least one of these dose optimization techniques: automated exposure control; mA and/or kV adjustment per patient size (includes targeted exams where dose is matched to clinical indication); or iterative reconstruction. Contrast material: ISOVUE 370; Contrast volume: 100 ml; Contrast route: INTRAVENOUS (IV); COMPARISON: CT HEAD/BRAIN WO CON 11/11/2023 6:34 PM FINDINGS: ANTERIOR CIRCULATION: Right internal carotid artery: Intracranial segment is patent with no significant stenosis. No aneurysm. Right middle cerebral artery: No occlusion or significant stenosis. No aneurysm. Right anterior cerebral artery: No occlusion or significant stenosis. No aneurysm. Left internal carotid artery: Intracranial segment is patent with no significant stenosis. No aneurysm. Left middle cerebral artery: No occlusion or significant stenosis. No aneurysm. Left anterior cerebral artery: No occlusion or significant stenosis. No aneurysm. POSTERIOR CIRCULATION: Right vertebral artery: No occlusion or significant stenosis. No aneurysm. Left vertebral artery: No occlusion or significant stenosis. No aneurysm. Basilar artery: No occlusion or significant stenosis. No aneurysm. Right posterior cerebral artery: No occlusion or significant stenosis. No aneurysm. Left posterior cerebral artery: No occlusion or significant stenosis. No aneurysm. Brain: No definite mass, mass effect, or midline shift. Cerebral ventricles: No ventriculomegaly. Bones/joints: Unremarkable. No acute fracture. Soft tissues: Unremarkable. IMPRESSION: No large vessel stenosis or occlusion.
--- NOTE | 2023-11-11 17:16 | CT_ITS ---
PROCEDURE INFORMATION: Exam: CT Head Without Contrast Exam date and time: 11/11/2023 6:34 PM Age: 58 years old Clinical indication: Dizziness; Additional info: Dizziness, nausea vomiting TECHNIQUE: Imaging protocol: Computed tomography of the head without contrast. Radiation optimization: All CT scans at this facility use at least one of these dose optimization techniques: automated exposure control; mA and/or kV adjustment per patient size (includes targeted exams where dose is matched to clinical indication); or iterative reconstruction. COMPARISON: CR XR ORBIT BILATERAL MIN 4V 08/27/2019 3:59 PM FINDINGS: Brain: Normal. No hemorrhage. Unremarkable white matter. No mass effect. Cerebral ventricles: No ventriculomegaly. Paranasal sinuses: Visualized sinuses are unremarkable. No fluid levels. Mastoid air cells: Visualized mastoid air cells are well aerated. Bones/joints: Unremarkable. No acute fracture. Soft tissues: Unremarkable. IMPRESSION: 1. No acute intracranial abnormality. 2. There is some retained IV contrast material within the dural venous sinuses. Correlate clinically for recent IV contrast injection prior to the performance of this CT scan.
--- NOTE | 2023-11-11 17:20 | PC.NURSE ---
DR RUTHERFORD AT BEDSIDE
[2023-11-11 17:49] LABS: Anion Gap 12.2 mEq/L (5-15); Blood Urea Nitrogen 21 mg/dl (9-20); Calcium 10.1 mg/dl (8.4-10.2); Carbon Dioxide 27 mmol/L (22.0-30.0); Chloride 104 mmol/L (98-107); Creatinine Clearance Estimated 152 mL/min (50-200); Estimated Glomerular Filt Rate 87 ml/min (>60); GFR (African American) 105 ML/MIN (>60); Glucose 146 mg/dl (74-100); Potassium 4.2 mmoL/L (3.5-5.1); Sodium 139 mmol/L (136-145)
[2023-11-11 17:50] LABS: Magnesium 2.2 mg/dl (1.6-2.3)
[2023-11-11 18:20] LABS: Thyroid Stimulating Hormone 1.72 uIU/mL (0.465-4.68)
[2023-11-11] MEDS: 0.9 % SODIUM CHLORIDE 50 ML VIAL IV (18:42)
[2023-11-11] MEDS: IOPAMIDOL-370 (76%);100ML BOTTLE 100 ML IV (18:43)
[2023-11-11] MEDS: SODIUM CHLORIDE 0.9% 10ML SYR (RAD ONLY) 10 ML IV (18:43)
== END 2023-11-11 19:45 | disposition home or self-care (01) ==
PROVIDERS: Physician Assistant; Emergency Provider Emergency Medicine; PCP Physician Assistant
DX: R94.31 Abnormal electrocardiogram [ECG] [EKG] (principal); R42 Dizziness and giddiness; R11.2 Nausea with vomiting, unspecified; E11.9 Type 2 diabetes mellitus without complications; I11.9 Hypertensive heart disease without heart failure; I25.119 Atherosclerotic heart disease of native coronary artery with unspecified angina pectoris; E78.5 Hyperlipidemia, unspecified; Z95.5 Presence of coronary angioplasty implant and graft; Z79.84 Long term (current) use of oral hypoglycemic drugs; Z87.891 Personal history of nicotine dependence
CPT/HCPCS: 70450; 70496; 70498; 80048; 83735; 84443; 93005; 99285; Q9967

== ENCOUNTER → 2024-01-28 07:52 | Outpatient (CLI) | payer BC, SELFPAY | LOC: SL 07:52 | PROVIDERS: PCP Physician Assistant; Visit Provider Physician Assistant | DX: R40.0 Somnolence (principal); G47.33 Obstructive sleep apnea (adult) (pediatric) | CPT/HCPCS: G0399 ==

== ENCOUNTER 2024-03-17 16:03 | Outpatient (CLI) | payer BC, SELFPAY | END 2024-03-17 23:59 | disposition home or self-care (01) | LOC: RT 16:03 | PROVIDERS: PCP Physician Assistant; Visit Provider Physician Assistant | DX: I49.3 Ventricular premature depolarization (principal); I47.20 Ventricular tachycardia, unspecified; Z95.1 Presence of aortocoronary bypass graft | CPT/HCPCS: 93225; 93227 ==

== ENCOUNTER 2024-03-19 15:35 | Outpatient (CLI) | payer BC, SELFPAY ==
[2024-03-19 16:17] LABS: Basophils # 0.1 K/mm3 (0-0.2); Basophils % 0.8 % (0.1-2.0); Eosinophils # 0.1 K/mm3 (0.0-0.4); Eosinophils % 1.5 % (0.1-12.0); Hematocrit 48.5 % (42.0-52.0); Lymphocytes # 1.5 K/mm3 (0.7-4.5); Lymphocytes % 21.5 % (10-50); Mean Corpuscular HGB Conc 33.1 g/dL (31.8-35.4); Mean Corpuscular Hemoglobin 30.1 pg (27.0-31.2); Mean Corpuscular Volume 90.8 fl (80-94); Mean Platelet Volume 7.9 fl (7.4-10.4); Monocytes # 0.5 K/mm3 (0.1-1.0); Monocytes % 7.7 % (1.7-9.3); Neutrophils # 4.8 K/mm3 (1.8-7.8); Neutrophils % 68.6 % (37.0-80.0); Platelet Count 199 K/mm3 (142-424); Red Blood Count 5.33 M/mm3 (4.60-6.20); Red Cell Distribution Width 15.3 % (11.5-17.5)
[2024-03-19 16:21] LABS: Albumin Level 4.6 g/dl (3.5-5.0); Chloride 105 mmol/L (98-107)
[2024-03-19 16:22] LABS: Sodium 137 mmol/L (136-145)
[2024-03-19 16:24] LABS: Alanine Aminotransferase 53 U/L (12-78); Aspartate Amino Transferase 38 U/L (17-59); Bilirubin,Unconjugated 0.5 mg/dL (0.0-1.1); Blood Urea Nitrogen 16 mg/dl (9-20); Carbon Dioxide 25 mmol/L (22.0-30.0); Cholesterol 134 mg/dl (140-200); Estimated Glomerular Filt Rate 77 ml/min (>60); GFR (African American) 93 ML/MIN (>60); Total Protein,Serum 7.4 g/dl (6.3-8.2); Triglycerides 247 mg/dl (30-150); VLDL Cholesterol 49 mg/dL (0-40)
[2024-03-19 16:25] LABS: Alkaline Phosphatase 76 U/L (38-126); Bilirubin,Direct 0.4 mg/dl (0.0-0.4); Bilirubin,Indirect 0.4 mg/dL (0.0-0.9); Bilirubin,Total 0.8 mg/dl (0.2-1.3); Calcium 8.9 mg/dl (8.4-10.2); Chol/HDL Ratio 5.4 (1-3.5); Glucose 117 mg/dl (74-100); HDL Cholesterol 25 mg/dl (40-60)
[2024-03-19 16:36] LABS: Direct LDL Cholesterol 64.57 mg/dL (100-129)
[2024-03-19 16:55] LABS: Thyroid Stimulating Hormone 1.71 uIU/mL (0.465-4.68)
[2024-03-19 18:15] LABS: Free T4 (Free Thyroxine) 1.13 ng/dl (0.78-2.19)
== END 2024-03-19 23:59 | disposition home or self-care (01) ==
LOC: LAB 15:35
PROVIDERS: PCP Physician Assistant; Visit Provider Physician Assistant
DX: I49.3 Ventricular premature depolarization (principal); R94.31 Abnormal electrocardiogram [ECG] [EKG]; I25.708 Atherosclerosis of coronary artery bypass graft(s), unspecified, with other forms of angina pectoris; E78.2 Mixed hyperlipidemia; I10 Essential (primary) hypertension; E11.9 Type 2 diabetes mellitus without complications; Z95.1 Presence of aortocoronary bypass graft
CPT/HCPCS: 36415; 80048; 80061; 80076; 83735; 84439; 84443; 85025

== ENCOUNTER 2024-03-26 16:00 | Outpatient (CLI) | payer BC, SELFPAY | END 2024-03-26 23:59 | disposition home or self-care (01) | LOC: RT 16:01 | PROVIDERS: PCP Physician Assistant; Visit Provider Physician Assistant | DX: I49.3 Ventricular premature depolarization (principal); R94.31 Abnormal electrocardiogram [ECG] [EKG] | CPT/HCPCS: 93270 ==

== ENCOUNTER 2024-04-05 07:51 | Day surgery (SDC) | payer BC, SELFPAY ==
[2024-04-05] VITALS (13 sets, daily range): BP systolic 92–162; BP diastolic 45–83; PULSE 41–55; RESP 18–20; TEMP 36.5; O2SAT 94–100; BMI 35.8
--- NOTE | 2024-04-05 07:18 | IR_ITS ---
APPROVED REPORT Patient Location: Outpatient Pollution Control Technician: GEOVANI Goodwin RT (R) PROCEDURES Left heart catheterization Left ventriculogram Selective coronary angiogram Selective engagement of left internal mammary artery Selective engagement of the saphenous vein graft to the right coronary artery Selective engagement of saphenous vein graft to the circumflex obtuse marginal artery Drug-eluting stent deployment to the first diagonal artery Drug-eluting stent deployment to the left anterior descending artery Drug-eluting stent deployment to the proximal mid to distal left main artery INDICATION Coronary artery disease, History of coronary bypass surgery, Ventricular tachycardia, Unbypassed large first diagonal artery, Informed consent was obtained prior to the procedure. COMPLICATIONS NONE Estimated Blood Loss: LESS THAN 10 ML TECHNIQUE One percent lidocaine used to anesthetize the right groin. The right femoral artery was accessed via the Seldinger technique and a 5 Khmer sheath was placed in the right femoral artery. A JL 4, JR4 catheter were used to perform left heart catheterization, left ventriculogram selective coronary angiography as well as selective engagement of the 2 vein grafts and the left internal mammary artery. At the end of the diagnostic angiogram therapeutic heparin was administered giving a therapeutic ACT and the guide catheter was placed in the left main artery followed by Choice PT extra-support wire down the diagonal artery. A 2.5 x 30 mm [place] frontier stent was placed in the first diagonal artery and deployed at 18 salbador reducing the stenosis. An additional 3.5 x 22 mm [place] frontier stent was placed proximal to this yet still overlapping the proximal portion of the 2.5 mm stent and deployed at 20 salbador. The balloon was advanced and deployed at 8 slabador in the ostial proximal diagonal artery. Following this an additional 3.5 x 15 mm Loco frontier stent was placed proximal to the for stent yet still overlapping extending back into the left main artery and deployed at 20 salbador. 800 mcg of intracoronary nitroglycerin was administered. RADHA III flow was present before and after the procedure. At the end the procedure the apparatus was removed the groin is reprepped closure change sheath was removed good hemostasis was achieved using Perclose device patient was transferred to the postop putting in stable condition ANGIOGRAPHIC RESULTS The left main artery He has a mid vessel 30% stenosis The left anterior descending artery Has a proximal hazy 50 to 60% stenosis followed by an additional proximal 70% stenosis between the first diagonal artery and first large septal orthopedic physical therapist. There is an additional mid vessel 70% LAD stenosis. Competitive flow is identified from the left internal mammary artery. The first diagonal artery is large equal in size if not larger than the LAD itself and has a proximal 70% stenosis followed by an additional 50 and 60% stenosis The circumflex artery Proximally occluded The right coronary artery Dominant and has an ostial 60 to 70% stenosis with a distal 90% stenosis proximal to the bifurcation of the PDA and posterior lateral ventricular branch competitive flow is identified The HSU ventriculogram reveals Reduced at 45 to 50% The left ventricular end-diastolic pressure 10 mmHg CORNELL to LAD widely patent Saphenous vein graft to first obtuse marginal artery is widely patent. After the anastomosis of this vein graft distally the first obtuse marginal artery is subtotally occluded. There is retrograde filling of the first obtuse marginal artery which backfills and supplies a true circumflex artery in the AV groove and a small to medium second obtuse marginal artery Saphenous vein graft to the posterior descending artery is small caliber with no stenosis greater than 20% IMPRESSION Large diagonal artery which is equal in size if not larger than the LAD itself which is unbypassed and severely stenosed with successful stenting of the left main artery LAD and diagonal artery giving RADHA III inline flow Patent CORNELL to LAD Patent saphenous vein graft to first OM Patent saphenous vein graft to PDA Reduced ejection fraction PLAN 1. Effient and aspirin 2. Standard therapy for ischemic heart disease 3. LDL less than 55 to be achieved with high intensity statin 4. Avoidance of tobacco products 5. Cardiac rehabilitation Electronically signed by : Ajith Orta MD 04/05/2024 10:35:01
[2024-04-05 08:37] LABS: Basophils # 0.1 K/mm3 (0-0.2); Basophils % 1.2 % (0.1-2.0); Eosinophils # 0.2 K/mm3 (0.0-0.4); Eosinophils % 2.2 % (0.1-12.0); Hematocrit 49.3 % (42.0-52.0); Lymphocytes # 1.5 K/mm3 (0.7-4.5); Lymphocytes % 20.4 % (10-50); Mean Corpuscular HGB Conc 32.4 g/dL (31.8-35.4); Mean Corpuscular Hemoglobin 30.2 pg (27.0-31.2); Mean Corpuscular Volume 93.3 fl (80-94); Mean Platelet Volume 7.9 fl (7.4-10.4); Monocytes # 0.6 K/mm3 (0.1-1.0); Monocytes % 7.8 % (1.7-9.3); Neutrophils # 5.2 K/mm3 (1.8-7.8); Neutrophils % 68.5 % (37.0-80.0); Platelet Count 210 K/mm3 (142-424); Red Blood Count 5.29 M/mm3 (4.60-6.20); Red Cell Distribution Width 15.4 % (11.5-17.5); White Blood Count 7.6 K/mm3 (4.8-10.8)
[2024-04-05 08:42] LABS: Chloride 106 mmol/L (98-107); Sodium 137 mmol/L (136-145)
[2024-04-05 08:43] LABS: Potassium 4.3 mmoL/L (3.5-5.1)
[2024-04-05 08:46] LABS: Anion Gap 9.3 mEq/L (5-15); Blood Urea Nitrogen 25 mg/dl (9-20); Calcium 8.9 mg/dl (8.4-10.2); Carbon Dioxide 26 mmol/L (22.0-30.0); Creatinine Clearance Estimated 131 mL/min (50-200); Estimated Glomerular Filt Rate 69 ml/min (>60); GFR (African American) 83 ML/MIN (>60); Glucose 170 mg/dl (74-100)
[2024-04-05] MEDS: diphenhydrAMINE 50MG/ML VIAL 50 MG IV (09:22)
[2024-04-05] MEDS: 0.9 % SODIUM CHLORIDE 500 ML 25 ML IV (09:22)
[2024-04-05] MEDS: HEPARIN 1,000 UNITS/ML 10ML VIAL (CATH LAB) 10000 UNIT IV ×2 (09:22→10:26)
[2024-04-05] MEDS: LIDOCAINE 1% 10ML MDV 20 ML IJ (09:22)
[2024-04-05] MEDS: HEPARIN 1,000 UNITS/500ML NS (CATH LAB) 3000 UNIT IV (09:23)
[2024-04-05] MEDS: FENTANYL 100MCG/2ML VIAL 50 MCG IV (10:03)
[2024-04-05] MEDS: NITROGLYCERIN 800MCG/8ML SYR (CATH LAB) 800 MCG IA (10:03)
[2024-04-05] MEDS: MIDAZOLAM HCL 1MG/1ML 5ML VIAL 1 MG IV (10:03)
[2024-04-05] MEDS: PRASUGREL 10MG TAB 60 MG PO (10:17)
[2024-04-05] MEDS: IOPAMIDOL-370 (76%);100ML BOTTLE 130 ML IV (12:18)
[2024-04-05 12:23] LABS: CATHL Activated Clotting Time 247 SEC (74-125)
== END 2024-04-05 13:55 | disposition home or self-care (01) ==
PROVIDERS: PCP Physician Assistant; Visit Provider Internal Medicine
DX: I25.708 Atherosclerosis of coronary artery bypass graft(s), unspecified, with other forms of angina pectoris (principal); I25.118 Atherosclerotic heart disease of native coronary artery with other forms of angina pectoris; R94.31 Abnormal electrocardiogram [ECG] [EKG]; I47.20 Ventricular tachycardia, unspecified; Z95.1 Presence of aortocoronary bypass graft; E11.9 Type 2 diabetes mellitus without complications; I10 Essential (primary) hypertension; I49.3 Ventricular premature depolarization; E78.2 Mixed hyperlipidemia; Z79.4 Long term (current) use of insulin
CPT/HCPCS: 80048; 85025; 85347; 92928; 92929; 93459; 99152; 99153; C1725; C1760; C1769; C1874; C1894; C9600; C9601; J1200; J1644; J2250; J3010; Q9967

== ENCOUNTER 2024-04-06 10:56 | Outpatient (CLI) | payer BC, SELFPAY ==
[2024-04-06 11:34] LABS: Basophils # 0.1 K/mm3 (0-0.2); Basophils % 0.9 % (0.1-2.0); Eosinophils # 0.1 K/mm3 (0.0-0.4); Eosinophils % 1.7 % (0.1-12.0); Hematocrit 47.4 % (42.0-52.0); Hemoglobin 15.5 g/dL (14.1-18.0); Lymphocytes # 1.5 K/mm3 (0.7-4.5); Lymphocytes % 20.3 % (10-50); Mean Corpuscular HGB Conc 32.7 g/dL (31.8-35.4); Mean Corpuscular Hemoglobin 30.2 pg (27.0-31.2); Mean Corpuscular Volume 92.5 fl (80-94); Mean Platelet Volume 8.1 fl (7.4-10.4); Monocytes # 0.7 K/mm3 (0.1-1.0); Monocytes % 8.8 % (1.7-9.3); Neutrophils # 5.2 K/mm3 (1.8-7.8); Neutrophils % 68.4 % (37.0-80.0); Platelet Count 206 K/mm3 (142-424); Red Blood Count 5.12 M/mm3 (4.60-6.20); Red Cell Distribution Width 15.3 % (11.5-17.5); White Blood Count 7.6 K/mm3 (4.8-10.8)
[2024-04-06 11:37] LABS: Chloride 106 mmol/L (98-107); Potassium 4.7 mmoL/L (3.5-5.1); Sodium 138 mmol/L (136-145)
[2024-04-06 11:40] LABS: Anion Gap 9.7 mEq/L (5-15); Blood Urea Nitrogen 18 mg/dl (9-20); Carbon Dioxide 27 mmol/L (22.0-30.0); Estimated Glomerular Filt Rate 77 ml/min (>60); GFR (African American) 93 ML/MIN (>60); Glucose 134 mg/dl (74-100)
== END 2024-04-06 23:59 | disposition home or self-care (01) ==
LOC: LAB 10:57
PROVIDERS: PCP Physician Assistant; Visit Provider Internal Medicine
DX: I25.10 Atherosclerotic heart disease of native coronary artery without angina pectoris (principal); I10 Essential (primary) hypertension; Z95.1 Presence of aortocoronary bypass graft
CPT/HCPCS: 36415; 80048; 85025

== ENCOUNTER → 2024-05-09 20:37 | Outpatient (CLI) | payer BC, SELFPAY | LOC: SL 20:39 | PROVIDERS: PCP Physician Assistant; Visit Provider Physician Assistant | DX: G47.33 Obstructive sleep apnea (adult) (pediatric) (principal) | CPT/HCPCS: 95811 ==